=== PATIENT | male | born 1995 | race Caucasian/White ===

== ENCOUNTER 2023-09-09 17:36 | Emergency (ER) | payer OTHER, SELFPAY ==
[2023-09-09 17:58] VITALS: BP 141/108; PULSE 94; RESP 18; TEMP 36.9; O2SAT 96
--- NOTE | 2023-09-09 19:41 | ED.GENADUL_ITS ---
Discharge Plan Disposition Patient Disposition: Home Discharge Details Clinical Impression: Paraspinal muscle spasm, Acute left-sided back pain Primary Care Provider: Ruchi Guerrero ED Provider: Donny Liu Home Meds and New Rx's Prescriptions: New lidocaine [Lidoderm] 5 % adhesive patch,medicated 1 patch topical DAILY Qty: 15 0RF Rx Instructions: leave on most painful area for up to 12 hrs diazepam 5 mg tablet 5 mg PO QHS PRNQty: 5 0RF Discharge Instructions Instructions: Low Back Strain (ED), Muscle Spasm (ED) Additional Instructions: You are seen in the emergency department for your back pain. Please do not drive or drink alcohol tonight as a result of the medications you have received. As we discussed please follow-up with your primary care provider later this week as you may benefit from a physical therapy referral. Please return to the emergency department as we discussed if you lose control of your bowels or bladder. Please also return if you develop any numbness or tingling between your legs or any fevers. For your pain please take medications as follows: 1. Take acetaminophen (Tylenol), 1,000 mg (two 500 mg tabs) every 6 hours 2. Take ibuprofen (Advil), 400 mg every 6 hours. You are also receiving several pills for muscle spasm that you should take this evening as directed. Please take this prescription and use as directed. Stand Alone Forms: Work Release Discharge Data Discharge Date/Time-TO BE ENTERED AT DEPARTURE: 09/09/23 20:13 HPI General Date/Time Provider Initiated Documentation: 09/09/23 19:11 . HPI Narrative: MDM This is a previously healthy normothermic and not tachycardic 27-year-old male with sudden onset low back pain with paraspinal muscle spasm concerning for ligamentous injury versus disc herniation. No significant trauma to suggest benefit from CT scan. No pain out of proportion to suggest necrotizing soft tissue infection. No red flags for back pain. Specifically no fevers no history of malignancy. No history of IV drug use so doubt spinal epidural abscess. Not anticoagulated to suggest increased risk for spinal epidural hematoma. Furthermore no recent spinal instrumentation. No loss of bowel or bladder control to suggest cauda equina. Similarly no saddle anesthesia. No rash to back to suggest zoster. Soft nontender abdomen so I am not concerned for intra-abdominal process. Given onset of pain after moving a box at work my suspicion is highest for ligamentous injury rather than nephrolithiasis. Not hypotensive neurovascular patient to suggest increased risk for AAA. Bilateral lower extremities warm well-perfused I am not concerned for critical limb ischemia. As result patient does not require an emergent CT angiogram. Patient and I discussed return indications including any loss of bowel or bladder control any saddle anesthesia or any weakness. 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 For this evening I have given him a short course of cyclobenzaprine. I sent a prescription to the pharmacy for Lidoderm patches and diazepam. I reviewed the patient's PDMP record and he had no records. I have asked health community service patrol officer Carolynn to have the patient seen within the next week by his primary care provider. I counseled the patient that he certainly may benefit from an MRI if his symptoms do not improve with conservative treatment. I explained to him that an MRI would not be useful in the short-term given the likely local inflammation from his recent injury. 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 Patient was reportedly his crouching down in a low truck. He was sliding a box. He felt a pop in his back. He now has pain in his left lower back that radiates down around to his left thigh. No history of similar injuries in the past. No history of malignancy. No significant falls although the patient did lower himself to the ground. No fevers. No loss of bowel or bladder control. No saddle anesthesia. Patient occasionally drinks alcohol but denies routine tobacco and illicits. He took Aleve at 3 PM this afternoon. Exam General: Mildly uncomfortable-appearing in no acute distress speaking in complete sentences. Head: Normocephalic, atraumatic. Eye: Extraocular eye movements intact. No conjunctival injection. No scleral icterus. Ear, nose, mouth, throat: Grossly normal inspection. Normal voice, handling secretions normally. Neck: Trachea midline. Cardiovascular: Well-perfused distal extremities. Regular rate and rhythm Respiratory: Nonlabored respiration. Clear lungs bilaterally Gastrointestinal: Nondistended abdomen. Soft nontender Musculoskeletal:no signs of trauma to back. No midline cervical thoracic nor lumbar spinal tenderness. Left paraspinal muscle spasm. 5 out of 5 bilateral lower extremity strength in dorsi and plantarflexion. 2+ patellar reflexes bilaterally. Bilateral lower extremities warm well-perfused with 2+ DP and PT pulses bilaterally. Skin: Normal for age and race, grossly normal temperature and turgor. No acute rash. Neurologic: Alert and appropriate, no apparent acute deficits. Psychiatric: Mood and manner are appropriate. Grooming and personal hygiene are appropriate. Related Data Home Medications Medication Instructions Recorded Confirmed diazepam 5 mg tablet 5 mg PO QHS PRN #5 tabs 09/09/23 lidocaine 5 % topical patch 1 patch topical DAILY #15 ea 09/09/23 (Lidoderm) Previous Rx's Medication Instructions Recorded diazepam 5 mg tablet 5 mg PO QHS PRN #5 tabs 09/09/23 lidocaine 5 % topical patch 1 patch topical DAILY #15 ea 09/09/23 (Lidoderm) Allergies Allergy/AdvReac Type Severity Reaction Status Date / Time cefprozil [From Cefzil] Allergy body rash Unverified 09/09/23 19:49 General Stated Complaint: Nk/Back Pain DARI: 3 PFSH All Active Problems (Updated 09/09/23 @ 23:21 by Donny Liu MD) Acute left-sided back pain (Acute) Paraspinal muscle spasm (Acute) Medical History (Updated 09/09/23 @ 23:21 by Donny Liu MD) Pilonidal cyst without abscess Adopted Depression Insomnia Surgical History [place] teeth extraction Excision, Pilonidal Cyst Family History Mother No problems noted. Father No problems noted. Social History Smoking/Tobacco Use Status: Never Smoking risk assessment performed?: Yes Drug use: Never Course Vital Signs Vital signs: Vital Signs Temperature 36.9 C 09/09/23 17:58 Pulse 94 H 09/09/23 17:58 Respiratory Rate 18 09/09/23 17:58 Blood Pressure 141/108 H 09/09/23 17:58 Pulse Oximetry 96 09/09/23 17:58 Temperature 36.9 C 09/09/23 17:58 Temperature Source Temporal Artery Scan 09/09/23 17:58 Pulse 94 H 09/09/23 17:58 Respiratory Rate 18 09/09/23 17:58 Blood Pressure 141/108 H 09/09/23 17:58 Blood Pressure Position Sitting 09/09/23 17:58 Pulse Oximetry 96 09/09/23 17:58 Oxygen Delivery Method Room Air 09/09/23 17:58 Oxygen Flow Rate 0 09/09/23 17:58
[2023-09-09 19:51] VITALS: BP 133/89; PULSE 96; RESP 16; O2SAT 96
--- NOTE | 2023-09-09 19:57 | NUR.NOTE ---
Pt placed on care management referral list to see primary for back pain per ED Dr Liu to be seen within 1 weekNursing Note:
[2023-09-09] MEDS: Cyclobenzaprine 10 MG TAB, 3 TABS/BTL PO (20:10)
[2023-09-09] MEDS: Acetaminophen 500 MG TAB 1000 MG PO (20:10)
[2023-09-09] MEDS: Ibuprofen 600 MG TAB PO (20:10)
[2023-09-09] MEDS: Lidocaine 5% Patch 1 PATCH TP (20:10)
[2023-09-09] MEDS: diazePAM 5 MG TAB PO (20:10)
== END 2023-09-09 20:13 | disposition home or self-care (01) ==
PROVIDERS: Emergency Provider Emergency Medicine; PCP Nurse Practitioner
DX: M54.50 Low back pain, unspecified (principal); M62.830 Muscle spasm of back
CPT/HCPCS: 99283

== ENCOUNTER → 2023-11-11 04:05 | Outpatient (CLI) | payer OTHER, SELFPAY ==
--- NOTE | 2023-11-11 12:36 | DI.RAD_ITS ---
Exam(s) XR LUMBAR SPINE COMPLETE EXAM: XR LUMBAR SPINE COMPLETE CLINICAL HISTORY: left sciatica,LT LUMBAR RADICULOPATHY,M54.16. TECHNIQUE: 2D digital imaging was performed of the lumbar spine. Five images were obtained. AP, la teral, right oblique, left oblique and L5-S1 spot views were obtained. COMPARISON: No exams were available for comparison FINDINGS: BONES: No fracture or destructive lesion. Vertebral bodies are unremarkable. No facet hypertrophy jesu ntified. DISKS: Intervertebral disc spaces are maintained. ALIGNMENT: Lumbar spinal alignment is within normal limits. No spondylolysis or spondylolisthesis. SOFT TISSUE: Normal. IMPRESSION: Unremarkable radiographs of the lumbar spine. DATA REPOSITORY: RADIATION DOSE DELIVERED:
== END ==
PROVIDERS: PCP Nurse Practitioner; Visit Provider Emergency Medicine
DX: M54.16 Radiculopathy, lumbar region (principal)
CPT/HCPCS: 72110

== ENCOUNTER → 2023-12-23 04:07 | Outpatient (CLI) | payer OTHER, SELFPAY ==
--- NOTE | 2023-12-23 07:30 | DI.MRI_ITS ---
Exam(s) MR LUMBAR SPINE WO EXAM: MR LUMBAR SPINE WO CLINICAL HISTORY: persistent left sciatica from workplace injury.m54.32. TECHNIQUE: Multiplanar multisequence MRI of the Lumbar spine was performed. COMPARISON: CR XR LUMBAR SPINE COMPLETE from 11/11/2023 FINDINGS: Bones: The last intervertebral disc space is designated the L5/S1 level for the numbering purpose of this examination. The vertebral body heights are well maintained. Alignment is satisfactory. The si gnal characteristics are unremarkable. Cord: The conus tip ends at the T12 level. It is of normal size and signal intensity. T12-L1: No disc herniations or bulges are present. No central spinal canal or neural foraminal stenos is. L1-2: No disc herniations or bulges are present. No central spinal canal or neural foraminal stenosis . L2-3: No disc herniations or bulges are present. No central spinal canal or neural foraminal stenosis . L3-4: No disc herniations or bulges are present. No central spinal canal or neural foraminal stenosis . L4-5: There is a small central disc herniation. No central spinal canal or neural foraminal stenosis . L5-S1: There is a small left paracentral disc herniation. No central spinal canal or neural foramina l stenosis. Soft tissues: The visualized SI joints and sacrum are well maintained. The paraspinal soft tissues ar e unremarkable. IMPRESSION: 1. No evidence of significant spinal stenosis or neuroforaminal narrowing. 2. Small central disc herniation at L4-5 without nerve root compression or neural foraminal stenosis. 3. Small left paracentral disc herniation without nerve root compression or neural foraminal stenosis . 4. No evidence of acute fracture or subluxation. DATA REPOSITORY:
== END ==
PROVIDERS: PCP Nurse Practitioner; Visit Provider Emergency Medicine
DX: M54.32 Sciatica, left side (principal)
CPT/HCPCS: 72148

== ENCOUNTER 2025-04-20 09:36 | Observation (INO) | payer MEDICAID, SELFPAY ==
[2025-04-20 09:43] VITALS: BP 136/88; PULSE 118; RESP 16; TEMP 37.4; O2SAT 97
[2025-04-20 09:47] VITALS: BP 136/88; PULSE 118; RESP 16; TEMP 37.4
[2025-04-20] MEDS: Acetaminophen 500 MG TAB 1000 MG PO (10:16)
[2025-04-20] MEDS: Ketorolac 15 MG/ML VIAL IVP (10:17)
[2025-04-20] MEDS: Normal Saline 1,000 ML 1000 ML IV (10:18)
[2025-04-20 10:28] LABS: Abs Immature Grans 0.05 10^3/uL (0.0-0.06); HCT 44.9 % (40.0-50.0); HGB 15.8 g/dL (13.5-17.5); Immature Grans % 0.4 %; MCH 27.1 pg (27.0-33.0); MCHC 35.2 % (32.0-36.0); MCV 77 fL (80-95); MPV 11.0 fL (8.0-11.0); Platelet Count 133 10^3/uL (130-400); RBC 5.84 10^6/uL (4.36-5.78); RDW 13.6 % (11.8-14.1); RDW-SD 37.5 fL; WBC 12.23 10^3/uL (4.4-10.8)
[2025-04-20 10:43] LABS: Albumin 3.6 g/dL (3.4-5.0); Alkaline Phosphatase 76 U/L (46-116); Anion Gap 15.9 mmol/L (3-11); BUN 12 mg/dL (7-18); Bilirubin, Total 1.8 mg/dL (0.2-1.0); CO2 22.1 mmol/L (21.0-32.0); Calcium 9.0 mg/dL (8.5-10.1); Chloride 89 mmol/L (98-107); Estimated GFR 103.84 (mL/min/1.73m2); Glucose 413 mg/dL (74-106); Potassium 4.2 mmol/L (3.5-5.1); Sodium 127 mmol/L (136-145)
[2025-04-20] MEDS: Normal Saline - Diluent 50 ML VIAL IJ (10:44)
[2025-04-20] MEDS: Omnipaque 350 MG/ML 100 ML BTL IJ (10:45)
--- NOTE | 2025-04-20 10:47 | DI.CT_ITS ---
Exam(s) CT ABDOMEN PELVIS W EXAM: CT ABDOMEN PELVIS W CLINICAL HISTORY: ?appy. TECHNIQUE: Imaging Protocol: Axial computed tomography images with coronal and sagittal reformatted images were created and reviewed CONTRAST MATERIAL: Intravenous: Omnipaque-350 100cc Oral: None COMPARISON: No exams were available for comparison FINDINGS: VISUALIZED LUNG BASES: No nodules nor pleural effusions evident. ABDOMEN: LIVER: Liver is diffusely hypodense implying steatosis and liver size is slightly prominent. There are no discrete focal hepatic lesions. There are no dilated intrahepatic ducts. Intrahepatic veins are patent. GALLBLADDER/BILIARY: No obvious acute gallbladder pathology. CBD is not dilated. PANCREAS: No evidence of pancreatic mass nor dilatation of the pancreatic duct. SPLEEN: Splenomegaly. Craniocaudal measurement of the spleen is 15.8 cm. There are no intrasplenic lesions. Splenic and portal veins are patent. ADRENALS: There are no significant adrenal masses. KIDNEYS:No cysts evident. No solid renal masses. No calculi nor hydronephrosis.. ABDOMINAL AORTA: Abdominal aorta is not enlarged. LYMPH NODES:There is no retroperitoneal nor paraaortic adenopathy. ABDOMINAL WALL: No evidence of significant anterior abdominal wall nor inguinal hernia. GI: There is significant fluid in the right-side of the abdomen seen around the distal half the duodenum and subjacent to the uncinate process of the pancreas and along the right paracolic gutter extending down into the pelvis and most dependent aspect of the pelvis. This fluid is of uniform density. Is also seen around the appendix. The appendix itself exhibits slightly increased diameter of 7-8 mm and is uniformly dense and does not contain intraluminal gas. No focal appendicoliths evident. The duodenal C-loop is moderately dilated. There is fluid around the 3rd and 4th parts of the duodenum. PELVIS: GI: There is no significant sigmoid diverticular disease. LYMPH NODES: There is no intrapelvic nor inguinal adenopathy. REPRODUCTIVE: Prostate size normal. Seminal vesicles unremarkable. URINARY BLADDER: No calculi nor obvious masses evident OSSEOUS: No fractures and no significant osseous lesions. IMPRESSION: 1. There is abundant fluid in the right-side of the abdomen extending from around the distal half of the a duodenum and adjacent uncinate process of the pancreas and extending in continuous fashion for this region down subjacent to the inferior aspect of the right hepatic lobe and down the right pericolic gutter all the way into the most dependent aspect of the pelvis. The appendix is bathed in this fluid and is slightly prominent in diameter but this amount of free fluid is not typical of acute appendicitis. 2. Appearance of the duodenum reflects possible duodenitis. Cannot exclude the possibly that the epicenter of disease here is in the distal half of the duodenal C-loop including of the ligament of Treitz. There is some fluid subjacent to the uncinate process of the pancreas but the pancreas itself ex hibits normal density. Nevertheless would recommend blood work for pancreatitis. 3. There is hepatomegaly and hepatic steatosis and splenomegaly. There are no esophageal varices. 4. Surgical consultation recommended. Report called by myself to ER provider 04/20/2025 at 11:10 a.m. RADIATION DOSE DELIVERED: 584.34mGy.cm Total DLP DATA REPOSITORY: All CT scans at this facility are submitted to the National Radiology Data Registry (NRDR) Dose Index Registry (DIR) with the [employer] (A[employer]). RADIATION OPTIMIZATION: All CT scans at this facility use at least one of these dose optimization techniques: automated exposure control; mA and/or kV adjustment per patient size (includes targeted exams where dose is matched to clinical indication); or iterative reconstruction.
--- NOTE | 2025-04-20 10:52 | W.ED.GENAD ---
Discharge Plan Disposition Patient Disposition: Admit to [facility] Condition: Stable Discharge Details Clinical Impression: Pancreatitis Admit Date/Time: 04/20/25 12:11 Admit Provider: Jose Garcia Attending Provider: Jose Garcia Primary Care Provider: Ruchi Guerrero ED Provider: Blayne Gee [facility] General Date/Time Provider Initiated Documentation: 04/20/25 09:39. HPI Narrative: 29 year-old male presents to ED today by POV/ambulating with his father with a chief complaint of umbilical abdominal pain, migrating to RLQ over the past 2 days with poor appetite. Quality described as stabbing abdominal pain, no radiation to heartburn, indigestion, fever, chest pain, shortness of breath, nausea/vomiting, black/bloody stool, dysuria. Severity is described as severe. Palliating factors include nothing specific attempted. Provoking factors include nothing specific. Events leading up to the incident/Associated Symptoms: Last BM 2 days ago. Patient not anticoagulated. Related Data Home Medications ?Medication ?Instructions ?Recorded ?Confirmed Unknown [No Known Home Meds] 10/15/24 04/20/25 Allergies Allergy/AdvReac Type Severity Reaction Status Date / Time cefprozil (From Cefzil) Allergy body rash Verified 10/06/24 08:41 General Stated Complaint: Abd Prob DARI: 3 Review of Systems All systems reviewed & are unremarkable except as noted in HPI and below Exam Narrative Exam Narrative: GENERAL APPEARANCE: Well-nourished, toxic, awake and alert, atraumatic, mild acute distress. SKIN: Warm, pink, dry, intact, without rashes/lesions/ulcerations. HEAD: Normocephalic, atraumatic, normal hair distribution for gender/age. EYES: Normal conjunctiva, no exudates on lids/lashes. ENT: Nares patent, no circumoral cyanosis, no facial swelling NECK: Supple, trachea midline, painless cervical ROM. LUNGS/CHEST: Lungs CTA bilaterally- no rhonchi/rales/wheezes diffusely, non-labored respirations, normal A/P diameter, symmetrical expansion, no chest wall deformity HEART (CV/PV): Regular rate and rhythm without murmur, no peripheral edema, no JVD. ABDOMEN: Soft, non-distended, no guarding, RLQ tenderness at McBurney's point with rebound tenderness, no epigastric tenderness, no Rovsing's. MSK: Normal ROM, no swelling/deformity to bilateral UEs or LEs, moving all extremities without weakness, no cyanosis, spine midline without tenderness, normal curvature. NEURO: Mental Status AAOx4 - alert to person, place, time, events No facial droop, no forehead involvement. Motor: No focal weakness - strength 5/5 in bilateral UEs and LEs, proximal and distal, symmetric. Sensory: sensation intact to light touch globally. Gait normal: patient ambulated without ataxia into ED room. PSYCH: euthymic, cooperative, pleasant, appropriate speech Course Vital Signs Vital signs: Vital Signs Temperature 37.4 C 04/20/25 09:43 Pulse 118 H 04/20/25 09:43 Respiratory Rate 16 04/20/25 09:43 Blood Pressure 136/88 04/20/25 09:43 Pulse Oximetry 97 04/20/25 09:43 Temperature 37.4 C 04/20/25 09:47 Temperature Source Oral 04/20/25 09:47 Pulse 118 H 04/20/25 09:47 Respiratory Rate 16 04/20/25 09:47 Blood Pressure 136/88 04/20/25 09:47 Blood Pressure Position Supine 04/20/25 09:47 Pulse Oximetry 97 04/20/25 09:43 Oxygen Delivery Method Room Air 04/20/25 09:43 Oxygen Flow Rate 0 04/20/25 09:43 Pain Level 6 04/20/25 09:47 Lab/Test Results Lab/Test Results: 04/20/25 10:10 Blood Blood Culture - Pending 04/20/25 10:10 Blood Blood Culture - Pending Laboratory Tests Range/Units 04/20/25 10:21 WBC (4.4-10.8) 10^3/uL 12.23 H RBC (4.36-5.78) 10^6/uL 5.84 H Hgb (13.5-17.5) g/dL 15.8 Hct (40.0-50.0) % 44.9 MCV (80-95) fL 77 L MCH (27.0-33.0) pg 27.1 MCHC (32.0-36.0) % 35.2 RDW (11.8-14.1) % 13.6 Plt Count (130-400) 10^3/uL 133 MPV (8.0-11.0) fL 11.0 Immature Gran % % 0.4 Neutrophils % % 83.9 Lymphocytes % % 8.7 Monocytes % % 6.5 Eosinophils % % 0.1 Basophils % % 0.4 Nucleated RBC % (0.0-0.3) % 0.0 Absolute Neutrophils (1.2-6.7) 10^3/uL 10.26 H Absolute Lymphocytes (1.2-3.4) 10^3/uL 1.06 L Absolute Monocytes (0.1-0.8) 10^3/uL 0.79 Absolute Eosinophils (0.0-0.7) 10^3/uL 0.01 Absolute Basophils (0.0-0.2) 10^3/uL 0.05 VBG Lactate (<or=2.0) mmol/L 2.4 H* Medical Decision Making This dictation utilizes [id number] dictation software and may contain unedited grammatical errors. 29 year-old male presents to ED today by POV/ambulating with his father with a chief complaint of umbilical abdominal pain, migrating to RLQ over the past 2 days with poor appetite. Quality described as stabbing abdominal pain, no radiation to heartburn, indigestion, fever, chest pain, shortness of breath, nausea/vomiting, black/bloody stool, dysuria. Severity is described as severe. Palliating factors include nothing specific attempted. Provoking factors include nothing specific. Events leading up to the incident/Associated Symptoms: Last BM 2 days ago. Patients' medical history: Negative, otherwise healthy. Family and social history: Noncontributory. Pertinent exam findings / vital signs include right lower quadrant tenderness at McBurney's point with rebound tenderness, no Rovsing's, negative Cloud sign, no epigastric tenderness, lungs CTA, afebrile, tachycardic. Differential / pathologies of concern include appendicitis, renal colic, SBO, less likely gastritis. Diagnostic studies of: - CBC, CMP, lactate, lipase, CRP, blood cultures, CT ABD/pelvis with contrast. - CBC shows a mild leukocytosis at 12.2 without left shift - CMP shows glucose of 413, anion gap 15.9, no TEREZA, LFTs within normal limits - Lipase is elevated at 152 - CRP is greater than 25 - Blood cultures pending - CT shows gross amounts of free fluid in the retroperitoneum likely coming from perforated duodenal ulcer, the appendix is thickened but source of fluid appears to be around the head of the pancreas Interventions of: - IVF 1 L NS, IV Tylenol, Toradol, IV Cipro and Flagyl. ED Course/Assessment/Plan: 29-year-old male presents with classic exam findings for appendicitis but CT does show that he has some free fluid in the abdomen and retroperitoneum mostly likely source around the pancreatic head possibly a duodenal ulcer, Dr. Garcia of general surgery admitted the patient for hobs overnight with antibiotics and potential procedure tomorrow, given IV antibiotics here in the emergency department and admitted upstairs at 1211. Confirmed diagnosis of pancreatitis, and suspected perforated duodenal ulcer with possible appendicitis. Findings not consistent with fever, ruptured appendix, appendicolith, renal colic, obstructive uropathy. Disposition of Pancreatitis. Patient verbalized understanding of the plan and return to ED criteria and engaged in shared decision making. Medical Records Medical records reviewed: Yes I reviewed the patient's medical records. Imaging Data Radiologic Study: Attestation: I personally reviewed and interpreted this imaging study as follows: Imaging: CT Scan Radiologist's impression: EXAM: CT ABDOMEN PELVIS W CLINICAL HISTORY: ?appy. TECHNIQUE: Imaging Protocol: Axial computed tomography images with coronal and sagittal reformatted images were created and reviewed CONTRAST MATERIAL: Intravenous: Omnipaque-350 100cc Oral: None COMPARISON: No exams were available for comparison FINDINGS: VISUALIZED LUNG BASES: No nodules nor pleural effusions evident. ABDOMEN: LIVER: Liver is diffusely hypodense implying steatosis and liver size is slightly prominent. There are no discrete focal hepatic lesions. There are no dilated intrahepatic ducts. Intrahepatic veins are patent. GALLBLADDER/BILIARY: No obvious acute gallbladder pathology. CBD is not dilated. PANCREAS: No evidence of pancreatic mass nor dilatation of the pancreatic duct. SPLEEN: Splenomegaly. Craniocaudal measurement of the spleen is 15.8 cm. There are no intrasplenic lesions. Splenic and portal veins are patent. ADRENALS: There are no significant adrenal masses. KIDNEYS:No cysts evident. No solid renal masses. No calculi nor hydronephrosis.. ABDOMINAL AORTA: Abdominal aorta is not enlarged. LYMPH NODES:There is no retroperitoneal nor paraaortic adenopathy. ABDOMINAL WALL: No evidence of significant anterior abdominal wall nor inguinal hernia. GI: There is significant fluid in the right-side of the abdomen seen around the distal half the duodenum and subjacent to the uncinate process of the pancreas and along the right paracolic gutter extending down into the pelvis and most dependent aspect of the pelvis. This fluid is of uniform density. Is also seen around the appendix. The appendix itself exhibits slightly increased diameter of 7-8 mm and is uniformly dense and does not contain intraluminal gas. No focal appendicoliths evident. The duodenal C-loop is moderately dilated. There is fluid around the 3rd and 4th parts of the duodenum. PELVIS: GI: There is no significant sigmoid diverticular disease. LYMPH NODES: There is no intrapelvic nor inguinal adenopathy. REPRODUCTIVE: Prostate size normal. Seminal vesicles unremarkable. URINARY BLADDER: No calculi nor obvious masses evident OSSEOUS: No fractures and no significant osseous lesions. IMPRESSION: 1. There is abundant fluid in the right-side of the abdomen extending from around the distal half of the a duodenum and adjacent uncinate process of the pancreas and extending in continuous fashion for this region down subjacent to the inferior aspect of the right hepatic lobe and down the right pericolic gutter all the way into the most dependent aspect of the pelvis. The appendix is bathed in this fluid and is slightly prominent in diameter but this amount of free fluid is not typical of acute appendicitis. 2. Appearance of the duodenum reflects possible duodenitis. Cannot exclude the possibly that the epicenter of disease here is in the distal half of the duodenal C-loop including of the ligament of Treitz. There is some fluid subjacent to the uncinate process of the pancreas but the pancreas itself exhibits normal density. Nevertheless would recommend blood work for pancreatitis. 3. There is hepatomegaly and hepatic steatosis and splenomegaly. There are no esophageal varices. 4. Surgical consultation recommended. Report called by myself to ER provider 04/20/2025 at 11:10 a.m. Lab Data Lab results reviewed: Yes I reviewed the patient's lab results. Labs: 04/20/25 11:45 Blood Blood Culture - Pending 04/20/25 11:10 Blood Blood Culture - Pending Laboratory Tests Range/Units 04/20/25 10:21 WBC (4.4-10.8) 10^3/uL 12.23 H RBC (4.36-5.78) 10^6/uL 5.84 H Hgb (13.5-17.5) g/dL 15.8 Hct (40.0-50.0) % 44.9 MCV (80-95) fL 77 L MCH (27.0-33.0) pg 27.1 MCHC (32.0-36.0) % 35.2 RDW (11.8-14.1) % 13.6 Plt Count (130-400) 10^3/uL 133 MPV (8.0-11.0) fL 11.0 Immature Gran % % 0.4 Neutrophils % % 83.9 Lymphocytes % % 8.7 Monocytes % % 6.5 Eosinophils % % 0.1 Basophils % % 0.4 Nucleated RBC % (0.0-0.3) % 0.0 Absolute Neutrophils (1.2-6.7) 10^3/uL 10.26 H Absolute Lymphocytes (1.2-3.4) 10^3/uL 1.06 L Absolute Monocytes (0.1-0.8) 10^3/uL 0.79 Absolute Eosinophils (0.0-0.7) 10^3/uL 0.01 Absolute Basophils (0.0-0.2) 10^3/uL 0.05 VBG Lactate (<or=2.0) mmol/L 2.4 H* Sodium (136-145) mmol/L 127 L Potassium (3.5-5.1) mmol/L 4.2 Chloride (98-107) mmol/L 89 L Carbon Dioxide (21.0-32.0) mmol/L 22.1 Anion Gap (3-11) mmol/L 15.9 H BUN (7-18) mg/dL 12 Creatinine (0.70-1.30) mg/dL 1.0 Est GFR (CKD-EPI 2020) (mL/min/1.73m2) 103.84 Glucose (74-106) mg/dL 413 H Calcium (8.5-10.1) mg/dL 9.0 Total Bilirubin (0.2-1.0) mg/dL 1.8 H AST (15-37) U/L 9 L ALT (16-63) U/L 10 L Alkaline Phosphatase (46-116) U/L 76 C-Reactive Protein (<or=0.5) mg/dL > 25.00 H Total Protein (6.4-8.2) g/dL 8.4 H Albumin (3.4-5.0) g/dL 3.6 Lipase (<78) U/L 152 H PFSH All Active Problems (Updated 04/20/25 @ 15:31 by CHANDRIKA Bahena) Pancreatitis (Chronic) Numbness and tingling of left lower extremity (Acute) Bulge of lumbar disc without myelopathy (Acute ~06/2024) 07/06/24 [facility] visit, no immediate intervention Left lumbar radiculopathy (Acute) 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
[2025-04-20 11:05] LABS: ALT 10 U/L (16-63); AST 9 U/L (15-37); C-Reactive Protein > 25.00 mg/dL (<or=0.5)
[2025-04-20 11:07] LABS: Total Protein 8.4 g/dL (6.4-8.2)
[2025-04-20 11:26] LABS: Lipase 152 U/L (<78)
[2025-04-20 12:16] VITALS: BP 119/75; PULSE 102; RESP 16; O2SAT 97
[2025-04-20 12:33] LABS: Bilirubin, Direct 0.2 mg/dL (0.0-0.2)
--- NOTE | 2025-04-20 13:07 | W.PC.ACHO ---
Registration Status: REG ER Primary Language: Preferred Language: Turkmen ED Information & Data Chief Complaint Abd Prob 04/20/25 10:53 Triage Note Two days of abdominal pain. 04/20/25 09:43 Started in the center then traveled to right lower abdomen. No BM in two days. 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) (Last Reviewed 11/17/24 @ 11:34 by Kerri Pretty NP) Excision, Pilonidal Cyst [place] teeth extraction Most Recent Vital Signs Temperature 37.4 C 04/20/25 09:47 Temperature Source Oral 04/20/25 09:47 Pulse 102 H 04/20/25 12:16 Respiratory Rate 16 04/20/25 12:16 Blood Pressure 119/75 04/20/25 12:16 Blood Pressure Mean 89 04/20/25 12:16 Blood Pressure Position Supine 04/20/25 09:47 Pulse Oximetry 97 04/20/25 12:16 Oxygen Delivery Method Room Air 04/20/25 09:43 Oxygen Flow Rate 0 04/20/25 09:43 Pain Level 6 04/20/25 09:47 Allergies cefprozil (From Cefzil) Allergy (Verified 10/06/24 08:41) body rash Precautions Isolation Standard precaution 04/20/25 09:47 Active Medications Generic Name Dose Route Start Last Admin Trade Name Freq PRN Reason Stop Dose Admin Iohexol 100 ml 04/20/25 10:45 04/20/25 10:45 Omnipaque 350 Mg/Ml 100 Ml Btl IJ 05/20/25 23:59 100 ml DIRECTED CHRISTINA Administration Sodium Chloride 50 ml 04/20/25 10:45 04/20/25 10:44 Normal Saline - Diluent 50 Ml Vial IJ 50 ml .FOR DI USE CHRISTINA Administration IV IV Catheter Type [Left Forearm Peripheral IV ] IV Catheter Gauge [Left 18 Forearm] Diagnostics 04/20/25 Range/Units 10:21 WBC 12.23 H (4.4-10.8) 10^3/uL RBC 5.84 H (4.36-5.78) 10^6/uL Hgb 15.8 (13.5-17.5) g/dL Hct 44.9 (40.0-50.0) % MCV 77 L (80-95) fL MCH 27.1 (27.0-33.0) pg MCHC 35.2 (32.0-36.0) % RDW 13.6 (11.8-14.1) % Plt Count 133 (130-400) 10^3/uL MPV 11.0 (8.0-11.0) fL Immature Gran % 0.4 % Neutrophils % 83.9 % Lymphocytes % 8.7 % Monocytes % 6.5 % Eosinophils % 0.1 % Basophils % 0.4 % Nucleated RBC % 0.0 (0.0-0.3) % Absolute Neutrophils 10.26 H (1.2-6.7) 10^3/uL Absolute Lymphocytes 1.06 L (1.2-3.4) 10^3/uL Absolute Monocytes 0.79 (0.1-0.8) 10^3/uL Absolute Eosinophils 0.01 (0.0-0.7) 10^3/uL Absolute Basophils 0.05 (0.0-0.2) 10^3/uL VBG Lactate 2.4 H* (<or=2.0) mmol/L Sodium 127 L (136-145) mmol/L Potassium 4.2 (3.5-5.1) mmol/L Chloride 89 L (98-107) mmol/L Carbon Dioxide 22.1 (21.0-32.0) mmol/L Anion Gap 15.9 H (3-11) mmol/L BUN 12 (7-18) mg/dL Creatinine 1.0 (0.70-1.30) mg/dL Est GFR (CKD-EPI 2020) 103.84 (mL/min/1.73m2) Glucose 413 H (74-106) mg/dL Calcium 9.0 (8.5-10.1) mg/dL Total Bilirubin 1.8 H (0.2-1.0) mg/dL Conjugated Bilirubin 0.2 (0.0-0.2) mg/dL AST 9 L (15-37) U/L ALT 10 L (16-63) U/L Alkaline Phosphatase 76 (46-116) U/L C-Reactive Protein > 25.00 H (<or=0.5) mg/dL Total Protein 8.4 H (6.4-8.2) g/dL Albumin 3.6 (3.4-5.0) g/dL Lipase 152 H (<78) U/L 04/20/25 11:45 Blood Culture - Pending Blood 04/20/25 11:10 Blood Culture - Pending Blood Intake and Output - 24 Hour Total 04/20/25 09:36 thru 04/20/25 09:43 Weight 108.862 kg Falls Risk Assessment History of Falls No History 04/20/25 09:47 Contributing Factors No Factors 04/20/25 09:47 Ambulatory Aids Independent 04/20/25 09:47 Tubes/Lines None 04/20/25 09:47 Gait Evaluation No gait disturbance 04/20/25 09:47 Cognition No cognitive impairment 04/20/25 09:47 Fall Total Score 0 04/20/25 09:47 Level of Risk Standard/Low Risk 04/20/25 09:47 v v v v v v v v v Sending and/or Receiving Nurses: Please use comment section below to note any information pertinent to the patient hand-off not included above. Information / Comments: Paged at [phone], called ED [phone]. Surgical consult already completed, pending new IV placed in ED. Report received from: Marlin ED nurse
[2025-04-20 13:30] VITALS: BP 125/87; PULSE 130; RESP 17; TEMP 36.9; O2SAT 96
[2025-04-20] MEDS: ACETAMINOPHEN 1,000 MG/100 ML BAG 400 MG IVPB ×2 (14:23→20:36)
[2025-04-20] MEDS: Normal Saline Flush 10 ML SYR IVP ×2 (14:24→20:36)
[2025-04-20] MEDS: Pantoprazole 40 MG VIAL IVP (14:24)
[2025-04-20] MEDS: Lactated Ringers 1,000 ML 75 ML IV (14:24)
[2025-04-20] MEDS: metroNIDAZOLE 500 MG/100 ML BAG 100 MG IVPB ×2 (14:52→22:41)
--- NOTE | 2025-04-20 14:55 | W.PM.HP.N ---
Date of service: 04/20/25 Time of Service: 15:12 Assessment and Plan Assessment and plan (1) Pancreatitis: Status: Chronic Assessment and plan: I do think that Cesar probably has some appendicitis, but I think the origin of this is really inflammation arising from the pancreas and duodenum. An overwhelming amount of the inflammation and fluid is confined to the retroperitoneum, extending down along the paracolic gutter. The majority of the appendix itself actually appears quite normal, as does the surrounding mesoappendix, unlike traditional appendicitis with appendiceal dilation and obstruction from an appendicolith. In that regard, I do not think there is any urgency to foster to the operating room here. More importantly I think controlling his pancreatitis, and correcting his electrolyte abnormalities and addressing what appears to be new diabetes is probably the most important step. I did start some broad-spectrum antibiotics, we will continue with some basic intravenous resuscitation. I would expect that to resolve his hyponatremia in short order. Obviously, how he responds to treatment will be the most important part here. I will also put him on a intravenous PPI in case this is arising from peptic ulcer disease adjacent to the pancreatic head. History of Present Illness History of Present Illness Chief Complaint: Abdominal pain Narrative: Cesar is 29 years old. He comes to the emergency department with a chief complaint of right lower quadrant pain. He recalls a clear onset of it about 2 days ago. He described it as sharp, mostly around the umbilicus. Over the next day and a half, it radiated towards the right side. He had a little bit of nausea without any vomiting. He denies any change in his stool. He denies any subjective fevers. He denies any history of gastroesophageal reflux disease or dyspepsia. Past medical history is most significant for a traumatic lower back injury. He is also had excision of a pilonidal cyst. He is allergic to Cefzil. In the emergency department, he was found to have a leukocytosis around 12-1/2 [address] He [address] a [address] scan of the abdomen and pelvis suspecting that he might have appendicitis. Significant findings include extensive fluid in the retroperitoneum most heavily focused around the duodenum and uncinate process of the pancreas. This runs down the right paracolic gutter towards the appendix. The appendix itself is slightly dilated at 7 to 8 mm, but the appearance is overall a typical of appendicitis. There is no appendicolith. Other significant lab findings include hyponatremia at 127, lactic acidosis at 3.4 and an anion gap. He also has a serum glucose of 413, without any diagnosis of diabetes. His biochemical evidence of pancreatitis with a serum lipase level of 152. Review of Systems Constitutional Constitutional: Reports fatigue, Denies fever(s) and Reports poor appetite Eyes Eyes: Reports system reviewed and no additional complaints, except as documented ENT Ears, Nose, Mouth, and Throat: Reports system reviewed and no additional complaints, except as documented Cardiovascular Cardiovascular: Denies chest pain and Denies dyspnea Respiratory Respiratory: Denies chest congestion, Denies cough and Denies dyspnea Gastrointestinal Gastrointestinal: Reports abdominal pain, Denies change in bowel habits, Denies constipation, Denies dyspepsia, Denies diarrhea, Reports nausea and Denies vomiting Genitourinary Genitourinary: Reports system reviewed and no additional complaints, except as documented Musculoskeletal Musculoskeletal: Reports system reviewed and no additional complaints, except as documented Endocrine Endocrine: Reports fatigue Hematologic/Lymphatic Hematologic/Lymphatic: Denies as per HPI and Denies easy bleeding PFSH All Active Problems (Updated 04/20/25 @ 15:27 by Jose Garcia MD) Pancreatitis (Chronic) Numbness and tingling of left lower extremity (Acute) Bulge of lumbar disc without myelopathy (Acute ~06/2024) 07/06/24 [facility] visit, no immediate intervention Left lumbar radiculopathy (Acute) 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) Pilonidal cyst without abscess Adopted Depression Insomnia Surgical History [place] teeth extraction Excision, Pilonidal Cyst Family History Other Adopted Social History Smoking/Tobacco Use Status: Never Smoking risk assessment performed?: Yes Alcohol Intake: former Drug use: Never Substance use type: does not use Housing: house current occupation: Former [employer] worker, currently on work injury Do you feel safe at home: Yes Do you feel safe in your relationship?: Yes Meds Allergies and Home Medications Allergies Allergy/AdvReac Type Severity Reaction Status Date / Time cefprozil (From Cefzil) Allergy body rash Verified 10/06/24 08:41 Home Medications ?Medication ?Instructions ?Recorded ?Confirmed ?Type Unknown [No Known Home Meds] 10/15/24 04/20/25 History Exam Const General: cooperative, healthy appearing and comfortable Nutritional Appearance: overweight Orientation: alert, awake and oriented x3 HENMT Head: normal to inspection Eyes General: appearance normal, both eyes and all related structures Neck Neck: normal visual inspection, full ROM and no lymphadenopathy Resp Effort & Inspection: normal respiratory effort Auscultation: clear to auscultation bilaterally Cardio Rate: regular rate Rhythm: regular rhythm Heart Sounds: S1 normal and S2 normal GI Inspection: non-distended Palpation: soft, guarding in the RLQ, no hernias and tender in the RLQ and periumbilically Percussion: normal to percussion Auscultation: hypoactive bowel sounds Extrem Right lower extremity: no edema Left lower extremity: no edema Results Imaging Abdomen CT scan report/results: report reviewed and image reviewed CT scan - pelvis: report reviewed and image reviewed Labs 04/20/25 10:21 04/20/25 10:21 Labs: Laboratory Results - last 24 hr 04/20/25 10:21 WBC 12.23 H RBC 5.84 H Hgb 15.8 Hct 44.9 MCV 77 L MCH 27.1 MCHC 35.2 RDW 13.6 Plt Count 133 MPV 11.0 Immature Gran % 0.4 Neutrophils % 83.9 Lymphocytes % 8.7 Monocytes % 6.5 Eosinophils % 0.1 Basophils % 0.4 Nucleated RBC % 0.0 Absolute Neutrophils 10.26 H Absolute Lymphocytes 1.06 L Absolute Monocytes 0.79 Absolute Eosinophils 0.01 Absolute Basophils 0.05 VBG Lactate 2.4 H* Sodium 127 L Potassium 4.2 Chloride 89 L Carbon Dioxide 22.1 Anion Gap 15.9 H BUN 12 Creatinine 1.0 Est GFR (CKD-EPI 2020) 103.84 Glucose 413 H Calcium 9.0 Total Bilirubin 1.8 H Conjugated Bilirubin 0.2 AST 9 L ALT 10 L Alkaline Phosphatase 76 C-Reactive Protein > 25.00 H Total Protein 8.4 H Albumin 3.6 Lipase 152 H Last Vital Signs Temp 98.4 F 04/20/25 13:30 Pulse 130 H 04/20/25 13:30 Resp 17 07/29/25 13:30 BP 125/87 04/20/25 13:30 Pulse Ox 96 04/20/25 13:30 Time Spent Time spent with Patient: >75 minutes Time was spent: preparing to see the patient(eg.review tests), ordering medications,tests, procedures, referring, communicating with other health resident care director, indepentently interpreting results, counseling the patient and care coordination
[2025-04-20] MEDS: Lactated Ringers 500 ML 1000 ML IV (15:35)
[2025-04-20] MEDS: CIPROFLOXACIN 200 MG/100 ML BAG 100 MG IVPB (16:20)
[2025-04-20] MEDS: Insulin Aspart 300 UNITS/3 ML PEN SC (17:08)
[2025-04-20 17:13] VITALS: PULSE 103
--- NOTE | 2025-04-20 17:44 | MCONE_ITS ---
Date of service: 04/20/25 Time of Service: 17:44 Assessment and Plan Assessment and plan (1) Abdominal pain: Status: Acute Assessment and plan: Abdominal pain with elevated CRP, WBC, and lipase consistent with some degree of pancreatitis. CT suggests that duodenal infection may be primary issue, possible ulcer eroding into pancreas? hepatic steatosis and splenomegaly, but labs not c/w cirrhosis/portal hypertension, no transaminitis, no fever to suggest infection like mono. Symptom pattern c/w appendicitis but imaging less c/w this. He is NPO on IV fluids, cipro and metronidazole per surgery (2) Hyperglycemia: Status: Acute Assessment and plan: He denies symptoms of diabetes, though I don't think Pancreatic inflammation may be contributing. A1c pending, add c-peptide and immune antibodies. It does not appear he is in DKA Treating with basal/bolus insulin, titrate based on response (3) Lactic acidosis: Status: Acute Assessment and plan: Secondary to acute infection, some dehydration. Repeat BMP after fluid in ED. (4) Hyponatremia: Status: Acute Assessment and plan: In setting of acute infection, hypovolemia. Follow with supportive care. (5) DVT prophylaxis: Status: Acute Assessment and plan: enoxaparin History of Present Illness Narrative: 29 yo M with history of irritable bowel, chronic lumbar disc disease who presenting with abdominal pain, evaluated by surgery and found to be hyperglycemic. He started feeling constipated 2 days ago, which is not normal for him, usually has several BMs/day. About 10 hours later, started with epigastric to periumbilical achy pain. By yesterday, the pain starting becoming more focal in RLQ. He has not had fevers or chills. No BM since this started. He has poor appetite, hasn't really eaten in past 2 days but is drinking. No recent blood in stool or change in chronic loose stools. He hasn't had cough or cold symptoms. He has some nausea but no vomiting. Never had this pain before. He doesn't use alcohol or drugs. No h/o abdominal surgeries. No abdominal trauma. No new medications or supplements. He has never had high sugars before. Denies polyuria/polydypsia or weight loss. 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) Pilonidal cyst without abscess Adopted Depression Insomnia Surgical History [place] teeth extraction Excision, Pilonidal Cyst Family History (Updated 04/20/25 @ 18:15 by Donny Guadalupe) Brother Diabetes per father, biologic siblings Other Adopted Social History Smoking/Tobacco Use Status: Never Smoking risk assessment performed?: Yes Alcohol Intake: former Drug use: Never Substance use type: does not use Housing: house current occupation: Former [employer] worker, currently on work injury Do you feel safe at home: Yes Do you feel safe in your relationship?: Yes Exam Narrative Exam Narrative: GEN: Alert and oriented x 4, pleasant and cooperative, gives linear history. No acute distress at rest. HEENT: Head atraumatic. Conjunctiva clear, no icterus. PEERL, EOMI. no rhinorrhea. MMM, OP benign. Neck is supple with no masses or lymphadenopathy, trachea midline LUNGS: CTAB with normal effort CV: RRR with no murmurs, gallops, or rubs. ABD: active bowel sounds, soft, tender in RUQ to RLQ, nondistended. no rebound, no masses. BACK: No CVAT EXT: no cyanosis, clubbing, or edema MSK: No joint redness or swelling NEURO: CN 2-12 grossly intact. Normal movement of 4 extremities. Normal speech and coordination. No tremor SKIN: No rashes or open wounds. PSYCH: normal mood and affect, nl thought process Results Last Vital Signs Temp 36.9 C 04/20/25 13:30 Pulse 103 H 04/20/25 17:13 Resp 17 04/20/25 13:30 BP 125/87 04/20/25 13:30 Pulse Ox 96 04/20/25 13:30 Labs 04/20/25 10:21 04/20/25 10:21 Labs: Laboratory Results - last 24 hr 04/20/25 10:21 WBC 12.23 H RBC 5.84 H Hgb 15.8 Hct 44.9 MCV 77 L MCH 27.1 MCHC 35.2 RDW 13.6 Plt Count 133 MPV 11.0 Immature Gran % 0.4 Neutrophils % 83.9 Lymphocytes % 8.7 Monocytes % 6.5 Eosinophils % 0.1 Basophils % 0.4 Nucleated RBC % 0.0 Absolute Neutrophils 10.26 H Absolute Lymphocytes 1.06 L Absolute Monocytes 0.79 Absolute Eosinophils 0.01 Absolute Basophils 0.05 VBG Lactate 2.4 H* Sodium 127 L Potassium 4.2 Chloride 89 L Carbon Dioxide 22.1 Anion Gap 15.9 H BUN 12 Creatinine 1.0 Est GFR (CKD-EPI 2020) 103.84 Glucose 413 H Calcium 9.0 Total Bilirubin 1.8 H Conjugated Bilirubin 0.2 AST 9 L ALT 10 L Alkaline Phosphatase 76 C-Reactive Protein > 25.00 H Total Protein 8.4 H Albumin 3.6 Lipase 152 H Imaging Imaging Studies: CT abd/pelvis: 1. There is abundant fluid in the right-side of the abdomen extending from around the distal half of the a duodenum and adjacent uncinate process of the pancreas and extending in continuous fashion for this region down subjacent to the inferior aspect of the right hepatic lobe and down the right pericolic gutter all the way into the most dependent aspect of the pelvis. The appendix is bathed in this fluid and is slightly prominent in diameter but this amount of free fluid is not typical of acute appendicitis. 2. Appearance of the duodenum reflects possible duodenitis. Cannot exclude the possibly that the epicenter of disease here is in the distal half of the duodenal C-loop including of the ligament of Treitz. There is some fluid subjacent to the uncinate process of the pancreas but the pancreas itself exhibits normal density. Nevertheless would recommend blood work for pancreatitis. 3. There is hepatomegaly and hepatic steatosis and splenomegaly. There are no esophageal varices.
[2025-04-20 19:23] LABS: Anion Gap 10.1 mmol/L (3-11); BUN 14 mg/dL (7-18); CO2 25.9 mmol/L (21.0-32.0); Calcium 9.0 mg/dL (8.5-10.1); Chloride 94 mmol/L (98-107); Estimated GFR 117.83 (mL/min/1.73m2); Glucose 323 mg/dL (74-106); Potassium 4.0 mmol/L (3.5-5.1); Sodium 130 mmol/L (136-145)
[2025-04-20 19:30] VITALS: BP 122/75; PULSE 118; RESP 19; TEMP 37.3; O2SAT 97
[2025-04-20] MEDS: HYDROmorphone 2 MG/ML SYR 1 MG IVP (20:51)
[2025-04-20 21:07] LABS: Triglyceride 1227 mg/dL (<150)
[2025-04-20 21:18] LABS: LDL CHOLESTEROL 75 mg/dL (<100)
[2025-04-20] MEDS: Insulin Glargine 300 UNITS/3 ML PEN 20 UNITS SC (21:28)
[2025-04-20 21:52] LABS: Hemoglobin A1C 10.9 % (<5.7)
--- NOTE | 2025-04-20 23:54 | CRITCAR_ITS ---
General Date Of Service Date of service: 04/20/25 Time of Service: 23:00 Requesting physician: Jose Garcia Reason for Consult: Hypertriglyceridemia Recommendations: To ICU for insulin drip History of Present Illness History of Present Illness Chief Complaint: Abdominal pain Narrative: Cesar Marcelo is a 29 year old man presenting April 20 with severe abdominal pain initially thought to be appendicitis. After review by general surgery he was diagnosed with pancreatitis. He was found to have diabetes, a new diagnosis. He was subsequently found to have severely elevated triglycerides. Patient reports that he was not aware of his diabetes until April 20 when medicine was consulted. Patient reports that he is adopted; to his knowledge his known relatives are alive and there were no early deaths that he knows of. His abdominal pain is well controlled on interview. A1C 10.9 consistent with new, uncontrolled diabetes. Insulin treatment appropriate while hospitalized and at discharge. Patient needs PCP for close followup. Triglycerides 1227 consistent with severe disease. He does present with worrisome features including lactic acidosis (now resolved), tachycardia in the 100's, leukocytosis > 12k. He does not have organ dysfunction. Given new diabetes diagnosis and patient's general stability, will opt to treat hypertriglyceridemia with insulin drip, which requires ICU level of care. 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) Pilonidal cyst without abscess Adopted Depression Insomnia Surgical History [place] teeth extraction Excision, Pilonidal Cyst Family History (Updated 04/20/25 @ 18:15 by Donny Guadalupe) Brother Diabetes per father, biologic siblings Other Adopted Social History Smoking/Tobacco Use Status: Never Smoking risk assessment performed?: Yes Alcohol Intake: former Drug use: Never Substance use type: does not use Housing: house current occupation: Former [employer] worker, currently on work injury Do you feel safe at home: Yes Do you feel safe in your relationship?: Yes Visit Medication and Allergies Active Medications Generic Name Dose Route Start Last Admin Trade Name Freq PRN Reason Stop Dose Admin Dextrose 0 gm 04/20/25 15:35 Glucose Oral Gel 15 Gm/37.5 Gm Tube PO DIRECTED PRN Dextrose/Water 0 gm 04/20/25 15:35 Dextrose 50%-Water 25 Gm/50 Ml Syr IVP DIRECTED PRN Enoxaparin Sodium 40 mg 04/20/25 14:00 04/20/25 14:41 Enoxaparin 40 Mg/0.4 Ml Syr SC Not Given Q24H CHRISTINA Hydromorphone HCl 1 mg 04/20/25 13:29 04/20/25 20:51 Hydromorphone 2 Mg/Ml Syr IVP 1 mg Q6H PRN PRN Administration Acetaminophen 1,000 mg in 100 mls @ 400 mls/hr 04/20/25 13:29 04/20/25 20:36 Ofirmev IVPB 400 mls/hr Q8H CHRISTINA Administration Metronidazole 500 mg in 100 mls @ 100 mls/hr 04/20/25 22:00 04/20/25 22:41 Flagyl IVPB 100 mls/hr Q8H CHRISTINA Administration Ringer's Solution 1,000 mls @ 75 mls/hr 04/20/25 13:29 04/20/25 17:44 IV 75 mls/hr INFUSION CHRISTINA Infusion Ciprofloxacin 200 mg in 100 mls @ 100 mls/hr 04/20/25 14:15 04/20/25 17:31 Cipro I.V. IVPB Infused NOW [facility] Infusion Ciprofloxacin 400 mg in 200 mls @ 200 mls/hr 04/21/25 02:00 Cipro I.V. IVPB Q12H CHRISTINA IV Miscellaneous Supplies 1 each 04/20/25 13:29 Iv Access IV DIRECTED CHRISTINA Insulin Aspart 0 units 04/20/25 17:00 04/20/25 17:08 Insulin Aspart 300 Units/3 Ml Pen SC 12 units 0800,1200,1700 CHRISTINA Administration Protocol Insulin Glargine 20 units 04/20/25 20:00 04/20/25 21:28 Insulin Glargine 300 Units/3 Ml Pen SC 20 units HS CHRISTINA Administration Ondansetron HCl 4 mg 04/20/25 13:29 Ondansetron 4 Mg/2 Ml Vial IVP Q4H PRN PRN Pantoprazole Sodium 40 mg 04/20/25 14:00 04/20/25 14:24 Pantoprazole 40 Mg Vial IVP 40 mg Q24H CHRISTINA Administration Sodium Chloride 0 ml 04/20/25 13:29 04/20/25 14:24 Normal Saline Flush 10 Ml Syr IVP 40 ml PRN PRN Administration Sodium Chloride 0 ml 04/20/25 20:00 04/20/25 20:36 Normal Saline Flush 10 Ml Syr IVP 10 ml BID CHRISTINA Administration Sodium Chloride 0 ml 04/20/25 13:29 Normal Saline 10 Ml Vial IJ DIRECTED PRN Allergies cefprozil (From Cefzil) Allergy (Verified 10/06/24 08:41) body rash Exam Narrative Exam Narrative: General: This is a pleasant man in mild distress due to abdominal pain HEENT: Normocephalic, atraumatic. Heavy wang. CV: RRR Resp: CTAB Abd: soft, tender to palpation in all 4 quadrants, worst at central low epigastrium MSK: Voluntary motion x4 Neuro: Awake, alert, no focal deficits Assessment and Plan Assessment and plan (1) Hypertriglyceridemia without hypercholesterolemia: Status: Acute Assessment and plan: Triglycerides 1227 Likely untreated diabetes led to elevated trikglycerides led to pancreatitis Concerning symptoms of lactic acidosis and leukocytosis have resolved, tachycardia much improved Discussed option of transfer for plasmapheresis; will defer due to new DM diagnosis and improved clinical presentation Will transfer to ICU and treat with insulin drip Protocol not in place at this facility. Discussed with ICU nursing staff and warehouse laborer. Will start insulin gtt at 20 u/hr countered with D5-0.45% NS, with Na and K control In contrast to DKA treatment, insulin treatment for hypertriglyceridemia is triggered on triglycerides and not on blood glucose, assuming no DKA Stop insulin drip when triglycerides below 500, otherwise stay at 0.1 - 0.3 u/kg/hr with D5 counter BMP q4h to stay on top of potassium, sodium Triglycerides q12H Start fenofibrate when resolved (2) Hypophosphatemia: Status: Acute Assessment and plan: Noted on April 21 morning labs Supplement and recheck (3) Acute pancreatitis: Status: Acute Assessment and plan: Likely due to hypertriglyceridemia exacerbated by uncontrolled diabetes No indication to trend lipase Likely able to tolerate PO today (4) Newly diagnosed diabetes: Status: Acute Assessment and plan: A1C 10.9 Resume basal/correctional insulin when hypertriglyceridemia resolves Patient needs PCP and prescription coverage Results Last Vital Signs Temp 37.3 C 04/20/25 19:30 Pulse 118 H 04/20/25 19:30 Resp 19 04/20/25 19:30 BP 122/75 04/20/25 19:30 Pulse Ox 97 04/20/25 19:30 Labs 04/21/25 04:17 04/21/25 04:17 Labs: Laboratory Results - last 24 hr 04/20/25 04/20/25 04/20/25 10:21 19:02 20:07 WBC 12.23 H RBC 5.84 H Hgb 15.8 Hct 44.9 MCV 77 L MCH 27.1 MCHC 35.2 RDW 13.6 Plt Count 133 MPV 11.0 Immature Gran % 0.4 Neutrophils % 83.9 Lymphocytes % 8.7 Monocytes % 6.5 Eosinophils % 0.1 Basophils % 0.4 Nucleated RBC % 0.0 Absolute Neutrophils 10.26 H Absolute Lymphocytes 1.06 L Absolute Monocytes 0.79 Absolute Eosinophils 0.01 Absolute Basophils 0.05 VBG Lactate 2.4 H* 1.9 Sodium 127 L 130 L Potassium 4.2 4.0 Chloride 89 L 94 L Carbon Dioxide 22.1 25.9 Anion Gap 15.9 H 10.1 BUN 12 14 Creatinine 1.0 0.9 Est GFR (CKD-EPI 2020) 103.84 117.83 Glucose 413 H 323 H Hemoglobin A1c 10.9 H Calcium 9.0 9.0 Total Bilirubin 1.8 H Conjugated Bilirubin 0.2 AST 9 L ALT 10 L Alkaline Phosphatase 76 C-Reactive Protein > 25.00 H Total Protein 8.4 H Albumin 3.6 Triglycerides 1227 H LDL Cholesterol Direct 75 Lipase 152 H
[2025-04-21] VITALS (91 sets, daily range): BP systolic 110–131; BP diastolic 69–88; PULSE 93–126; RESP 12–26; TEMP 36.7–37.6; O2SAT 91–98
[2025-04-21 00:55] LABS: Anion Gap 10.9 mmol/L (3-11); BUN 14 mg/dL (7-18); CO2 28.1 mmol/L (21.0-32.0); Calcium 9.1 mg/dL (8.5-10.1); Chloride 93 mmol/L (98-107); Estimated GFR 117.83 (mL/min/1.73m2); Glucose 292 mg/dL (74-106); Potassium 4.2 mmol/L (3.5-5.1); Sodium 132 mmol/L (136-145)
[2025-04-21] MEDS: Normal Saline 1,000 ML 150 ML IV (01:06)
[2025-04-21] MEDS: INSULIN REGULAR IN 0.9 % NACL 100 UNIT/100 ML BAG IVINF ×2 (01:10→09:36)
[2025-04-21] MEDS: Enoxaparin 40 MG/0.4 ML SYR SC ×2 (01:34→21:14)
[2025-04-21] MEDS: CIPROFLOXACIN 400 MG/200 ML BAG 200 MG IVPB ×2 (02:24→14:08)
[2025-04-21 04:51] LABS: Abs Immature Grans 0.04 10^3/uL (0.0-0.06); HCT 41.6 % (40.0-50.0); HGB 14.3 g/dL (13.5-17.5); Immature Grans % 0.5 %; MCH 26.7 pg (27.0-33.0); MCHC 34.4 % (32.0-36.0); MCV 78 fL (80-95); MPV 11.1 fL (8.0-11.0); Platelet Count 114 10^3/uL (130-400); RBC 5.35 10^6/uL (4.36-5.78); RDW 13.9 % (11.8-14.1); RDW-SD 38.8 fL; WBC 8.49 10^3/uL (4.4-10.8)
[2025-04-21 05:05] LABS: Lipase 61 U/L (<78)
[2025-04-21 05:08] LABS: Magnesium 2.0 mg/dL (1.8-2.4)
[2025-04-21 05:11] LABS: Triglyceride 894 mg/dL (<150)
[2025-04-21 05:22] LABS: C-Reactive Protein > 25.00 mg/dL (<or=0.5)
[2025-04-21] MEDS: ACETAMINOPHEN 1,000 MG/100 ML BAG 400 MG IVPB ×3 (05:26→21:12)
[2025-04-21] MEDS: DEXTROSE 5%-0.45% SALINE 1,000 ML 150 ML IV ×3 (05:34→21:44)
[2025-04-21] MEDS: metroNIDAZOLE 500 MG/100 ML BAG 100 MG IVPB ×3 (05:47→21:14)
[2025-04-21 06:00] LABS: Anion Gap 12.4 mmol/L (3-11); BUN 14 mg/dL (7-18); CO2 24.6 mmol/L (21.0-32.0); Calcium 9.1 mg/dL (8.5-10.1); Chloride 96 mmol/L (98-107); Estimated GFR 122.10 (mL/min/1.73m2); Glucose 228 mg/dL (74-106); Potassium 3.4 mmol/L (3.5-5.1); Sodium 133 mmol/L (136-145)
[2025-04-21] MEDS: Normal Saline Flush 10 ML SYR IVP ×2 (07:56→21:14)
[2025-04-21 08:21] LABS: Anion Gap 8.2 mmol/L (3-11); BUN 13 mg/dL (7-18); CO2 27.8 mmol/L (21.0-32.0); Calcium 9.1 mg/dL (8.5-10.1); Chloride 96 mmol/L (98-107); Estimated GFR 117.83 (mL/min/1.73m2); Glucose 187 mg/dL (74-106); Potassium 3.8 mmol/L (3.5-5.1); Sodium 132 mmol/L (136-145)
[2025-04-21] MEDS: HYDROmorphone 2 MG/ML SYR 1 MG IVP ×2 (08:27→11:09)
--- NOTE | 2025-04-21 10:58 | INITIAL_ITS ---
Date of service: 04/21/25 Time of Service: 10:58 Care Management Initial Assmt Initial Assessment Reason for Hospitalization: abdominal pain Functional Status/Living Situation Patient Presentation: Michael presented to the ED yesterday afternoon with c/o abdominal pain. He was found to have some sort of pancreatitis, appendicitis and new diabetes. Surgery did not feel that OR was needed. Michael was admitted to ICU on an insulin drip, IVF and IV antibiotics in attempt to normalize his electrolytes and blood sugar. Michael was lying in bed when CM met with him today. He was quiet, but polite. His parents and his brother were present. Michael is currently out of work on [employer]. He had previously been working for [employer] and suffered a low back injury. Michael and his family are very concerned that Michael does not have any insurance, understandably. He will have this hospital stay, and will also be started on new medications, which will need to be paid for. With Michael's permission, [facility] referral was sent. [facility] is unfortunately closed today, and Michael was notified of this. They will be open tomorrow. Patient Assistance packet was also given. MEGHAN also spoke with the Truck Supervisor at Michael's PCP office to update her. CC stated that the office is already planning to have Michael meet with their DM educator and also the pharmacist. Michael was made aware of this as well. Town of Residence: [place] Resides with: Other (brother, Kyler) Significant Other/Family: Local (Parents, Aniya and Shailesh, brother, Kyler) Natural Supports: family Employment Status: Other (out on [employer]) Instrumental Activities of Daily Living (ADLs): Independent Medications Medication Management: Issues/Barriers with Cost Advance Directives Advance Directives: Do you have an Advance Directive: N , 13:12 AD On File at [facility]: N 01/05/13, 14:30 Date Asked 04/20/25 04/20/25, 11:27 AD Date Reviewed COLST On File at [facility] COLST Date Scanned Code Status Resuscitation Status Full Code Portal Pt does not currently have a portal and education provided: Yes Insurance Coverage/Financial Issues Insurance: self pay - see above Care Team Visit Care Team Role Provider Type Ruchi Guerrero NP Primary Care Provider NURSE PRACTITIONER Violetta Sexton RDN, [facility] Other Providers CHEST PAINTING AND SEALING SUPERVISOR John Fan RDN Other Providers CHEST PAINTING AND SEALING SUPERVISOR CHANDRIKA Bahena Emergency Provider PHYSICIANS STONE CRUSHER OPERATOR Jose Garcia MD Admit Provider [facility] STAFF PHYSICIAN Attending Provider Discharge Potential Discharge Needs: PCP F/U Appt (DM educator and pharmacist) Anticipated Barriers to Discharge: None Identified Patient/Family Education Needs: Review discharge instructions, discuss Ask Me Three Transportation: Private vehicle Plan: Anticipate that Michael will be discharged home with no new services. He will f/u with his PCP, DM educator and pharmacist, and continue per his plan of care. Michael will transport home in a private vehicle. CM will continue to follow. Social Determinants of Health Screening Social Determinants of health last assessed in clinic: 04/21/25 Will the Patient Participate in the Screening?: Unable to obtain Do you worry about having a steady place to live?: no Problems where you live: no known problems In the past 12 months, have you had to go without electric, gas, oil or water in your home?: no Has lack of transportation kept you from medical appointments or from doing things needed for daily living?: no Has anyone in your life made you feel unsafe or unsupported?: no How hard is it for you to pay for the very basics like food, housing, medical care, and heating? Would you say it is:: Not hard at all Do you want help finding or keeping work or a job?: I do not need or want help If for any reason you need help with day-to-day activities such as bathing, preparing meals, shopping, managing finances, etc., do you get the help you need?: I don?t need any help How often do you feel lonely or isolated from those around you?: Never Do you speak a language other than [place] at home?: No Does the patient want assistance with any of the above?: No Health Related Social Needs Health related social needs details: none 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
--- NOTE | 2025-04-21 11:29 | PHA.REVIEW2 ---
Pharmacy Admission Review Admission Clinical Review Admission Pharmacy Review: Newly diagnosed diabetes (Acute) Acute pancreatitis (Acute) Hypophosphatemia (Acute) Hypertriglyceridemia without hypercholesterolemia (Acute) DVT prophylaxis (Acute) Lactic acidosis (Acute) Hyponatremia (Acute) Hyperglycemia (Acute) Abdominal pain (Acute) cefprozil (From Cefzil) Allergy (Verified 10/06/24 08:41) body rash Resuscitation Status Full Code Height 6 ft Weight 105.9 kg Pharmacy Admission Review Renal Dosing Renal Dosing: BUN 13 mg/dL (7-18) 04/21/25 08:00 Creatinine 0.9 mg/dL (0.70-1.30) 04/21/25 08:00 Medications needing adjustments: Reviewed (CrCl 150.9 mL/min) List of meds needing interventions: Current medications are okay Anticoagulation Anticoagulation: Hgb 14.3 g/dL (13.5-17.5) 04/21/25 04:17 Hct 41.6 % (40.0-50.0) 04/21/25 04:17 Plt Count 114 10^3/uL (130-400) L 04/21/25 04:17 Creatinine 0.9 mg/dL (0.70-1.30) 04/21/25 08:00 DVT Prophylaxis: Reviewed Medications: Enoxaparin (40mg daily) Opiate Usage Evaluate Pain Scale/Pains Meds: Reviewed (hydromorphone IVP 1mg q2h PRN - 1mg/24hrs) Relevant Labs Relevant Labs: Sodium 132 mmol/L (136-145) L 04/21/25 08:00 Potassium 3.8 mmol/L (3.5-5.1) 04/21/25 08:00 Chloride 96 mmol/L (98-107) L 04/21/25 08:00 Phosphorus < 2.0 mg/dL (2.6-4.7) L 04/21/25 04:17 Magnesium 2.0 mg/dL (1.8-2.4) 04/21/25 04:17 C-Reactive Protein > 25.00 mg/dL (<or=0.5) H 04/21/25 04:17 Electrolytes, C-Reactive P, ESR: Reviewed (Has order for Phospa 250mg) DM Control DM Control: Glucose 187 mg/dL (74-106) H 04/21/25 08:00 Hemoglobin A1c 10.9 % (<5.7) H 04/20/25 20:07 Finger Stick Blood Glucose 255 1128 Finger Stick Blood Glucose 255 1128 Finger Stick Blood Glucose 233 1025 Finger Stick Blood Glucose 233 1025 Finger Stick Blood Glucose 216 0931 Finger Stick Blood Glucose 216 0931 Finger Stick Blood Glucose 244 0833 Finger Stick Blood Glucose 244 0833 Finger Stick Blood Glucose 149 0731 Finger Stick Blood Glucose 149 0731 Finger Stick Blood Glucose 92 0627 Finger Stick Blood Glucose 92 0627 Finger Stick Blood Glucose 125 0529 Finger Stick Blood Glucose 125 0529 DM Control: Intervened (newly diagnosed diabetes) Insulin Dosing, Diabetic Medication: Currently on insulin infusion at 5 units/hr. Also have orders for SS insulin and glargine 20 units HS. Reached out to provider to see if these should be put on hold while patient is on infusion. Waiting to hear back. Cardiac Review BP, HR, EF%: Reviewed (HR 103, BP WNL) QTc Review QTc: Reviewed (QT 0.31 from 04/21/25) IV to PO Switch IV Medications: Reviewed (NPO) Home Meds Home Med List reviewed: Reviewed Relevent Home Meds Not ordered & why?: No known home medications Current Meds Current Medication Order Review: Intervened Comments: Changed acetaminophen order to be on an even hour per pharmacy protocol Pharmacy Antibiotic Review Relevant Labs: Relevant Labs 04/21/25 04:17 C-Reactive Protein > 25.00 H WBC 8.49 10^3/uL (4.4-10.8) 04/21/25 04:17 Temperature 36.8 C Temperature 36.9 C Temperature 36.9 C Temperature 37.6 C Temperature 37.6 C Pharmacy Antibiotic Activity: C/S review and Reviewed, no change Comments: Patient is on ciprofloxacin and metronidazole, day 1, for possible pancreatitis? WBC decreased from 12.23 and blood cultures pending.
--- NOTE | 2025-04-21 12:30 | DI.RAD_ITS ---
Exam(s) XR ABD FLAT UPRIGHT PA CHEST CLINICAL HISTORY: abdominal pain. COMPARISON: CT CT ABDOMEN PELVIS W from 04/20/2025 FINDINGS: LUNGS: Clear. No pleural abnormality seen. HEART: Normal. MEDIASTINUM: Normal. BOWEL GAS PATTERN: Mildly dilated loops of small bowel in the left upper quadrant. In gas scattered throughout small bowel and colon. Normal quantity of fecal material. Small air-fluid levels seen. ABNORMAL COLLECTIONS OF AIR: No abnormal collection of air. No pneumoperitoneum. CALCIFICATIONS: None. No radiopaque renal, ureteral, or bladder calcification. IMPRESSION: 1. Mildly dilated small bowel in the left upper quadrant. No evidence of free air. 2. No acute pulmonary findings.
[2025-04-21 12:31] LABS: Anion Gap 6.0 mmol/L (3-11); BUN 13 mg/dL (7-18); CO2 30.0 mmol/L (21.0-32.0); Calcium 9.0 mg/dL (8.5-10.1); Chloride 96 mmol/L (98-107); Estimated GFR 117.83 (mL/min/1.73m2); Glucose 264 mg/dL (74-106); Potassium 3.7 mmol/L (3.5-5.1); Sodium 132 mmol/L (136-145)
[2025-04-21] MEDS: HYDROmorphone 2 MG/ML SYR 1.5 MG IVP (13:26)
[2025-04-21] MEDS: Pantoprazole 40 MG VIAL IVP (14:04)
--- NOTE | 2025-04-21 14:21 | W.PM.PROGNOT ---
Date of Service Date of service: 04/21/25 Time of Service: 14:21 Assessment and Plan Assessment and plan (1) Abdominal pain: Status: Acute Assessment and plan: Abdominal pain with elevated CRP, WBC, and lipase consistent with some degree of pancreatitis. I am not convinced that pancreatiits is the primary causative factor as it doesn't explain imaging findings and RLQ pain alone. CT suggests that duodenal infection may be primary issue, possible ulcer eroding into pancreas? hepatic steatosis and splenomegaly, but labs not c/w cirrhosis/portal hypertension, no transaminitis, no fever to suggest infection like mono. Symptom pattern c/w appendicitis but imaging less c/w this. He is NPO on IV fluids, cipro and metronidazole per surgery, abd film pending today I still does not look toxic, exam not c/w peritonitis, but he is requiring significant pain medications, surgery following. (2) Hypertriglyceridemia without hypercholesterolemia: Status: Acute Assessment and plan: Now on insulin drip to treat this given acute pancreatitis. Will continue until TG below 500. (3) Newly diagnosed diabetes: Status: Acute Assessment and plan: A1c very elevated. We discussed management, starting with insulin, but if type 2 as it appears there is a good chance he can get off insulin in a few months. anti-NIKKO and c-peptide pending DM education ordered here and as outpatient. Now on drip, back to basal/bolus insulin when TG down. (4) Hyponatremia: Status: Acute Assessment and plan: In setting of acute infection, hypovolemia. Has persisted but not worse, follow with supportive care. (5) Lactic acidosis: Status: Acute Assessment and plan: Secondary to acute infection, some dehydration. resovled on repeat which speaks against evolving severe infection. (6) DVT prophylaxis: Status: Acute Assessment and plan: enoxaparin. plts a little low, so follow Subjective Subjective Patient reports: denies bowel movement, nausea, vomiting, shortness of breath or fever Interval history since last seen: Events: Transferred to ICU for insulin drip to treat hypertriglycerides in setting of pancreatitis A1c returned 10.8% c/w new DM, likely type 2 He feels okay. Pain better after hydromorphone. Exam Narrative Exam Narrative: GEN: Alert and oriented x 4, pleasant and cooperative, gives linear history. No acute distress at rest. LUNGS: CTAB with normal effort CV: RRR with no murmurs, gallops, or rubs. ABD: active bowel sounds, soft, tender in RUQ to RLQ, nondistended. no rebound, no masses. EXT: no cyanosis, clubbing, or edema Objective Last Vital Signs Temp 36.8 C 04/21/25 08:30 Pulse 103 H 04/21/25 09:31 Resp 21 04/21/25 09:31 BP 111/79 04/21/25 09:31 Pulse Ox 96 04/21/25 09:31 Laboratory Results - last 24 hr 04/20/25 04/20/25 04/21/25 19:02 20:07 00:14 WBC RBC Hgb Hct MCV MCH MCHC RDW Plt Count MPV Immature Gran % Neutrophils % Lymphocytes % Monocytes % Eosinophils % Basophils % Nucleated RBC % Absolute Neutrophils Absolute Lymphocytes Absolute Monocytes Absolute Eosinophils Absolute Basophils VBG Lactate 1.9 Sodium 130 L Cancelled Potassium 4.0 Cancelled Chloride 94 L Cancelled Carbon Dioxide 25.9 Cancelled Anion Gap 10.1 Cancelled BUN 14 Cancelled Creatinine 0.9 Cancelled Est GFR (CKD-EPI 2020) 117.83 Cancelled Glucose 323 H Cancelled Hemoglobin A1c 10.9 H Calcium 9.0 Cancelled Phosphorus Magnesium Total Bilirubin AST ALT Alkaline Phosphatase C-Reactive Protein Total Protein Albumin Triglycerides 1227 H LDL Cholesterol Direct 75 Lipase 04/21/25 04/21/25 04/21/25 00:30 04:00 04:17 WBC 8.49 RBC 5.35 Hgb 14.3 Hct 41.6 MCV 78 L MCH 26.7 L MCHC 34.4 RDW 13.9 Plt Count 114 L MPV 11.1 H Immature Gran % 0.5 Neutrophils % 84.2 Lymphocytes % 10.0 Monocytes % 4.7 Eosinophils % 0.2 Basophils % 0.4 Nucleated RBC % 0.0 Absolute Neutrophils 7.15 H Absolute Lymphocytes 0.85 L Absolute Monocytes 0.40 Absolute Eosinophils 0.02 Absolute Basophils 0.03 VBG Lactate Sodium 132 L Cancelled 133 L Potassium 4.2 Cancelled 3.4 L Chloride 93 L Cancelled 96 L Carbon Dioxide 28.1 Cancelled 24.6 Anion Gap 10.9 Cancelled 12.4 H BUN 14 Cancelled 14 Creatinine 0.9 Cancelled 0.8 Est GFR (CKD-EPI 2020) 117.83 Cancelled 122.10 Glucose 292 H Cancelled 228 H Hemoglobin A1c Calcium 9.1 Cancelled 9.1 Phosphorus < 2.0 L Magnesium 2.0 Total Bilirubin AST ALT Alkaline Phosphatase C-Reactive Protein > 25.00 H Total Protein Albumin Triglycerides 894 H LDL Cholesterol Direct Lipase 61 04/21/25 04/21/25 04/21/25 05:35 08:00 12:10 WBC RBC Hgb Hct MCV MCH MCHC RDW Plt Count MPV Immature Gran % Neutrophils % Lymphocytes % Monocytes % Eosinophils % Basophils % Nucleated RBC % Absolute Neutrophils Absolute Lymphocytes Absolute Monocytes Absolute Eosinophils Absolute Basophils VBG Lactate Sodium Cancelled 132 L 132 L Potassium Cancelled 3.8 3.7 Chloride Cancelled 96 L 96 L Carbon Dioxide Cancelled 27.8 30.0 Anion Gap Cancelled 8.2 6.0 BUN Cancelled 13 13 Creatinine Cancelled 0.9 0.9 Est GFR (CKD-EPI 2020) Cancelled 117.83 117.83 Glucose Cancelled 187 H 264 H Hemoglobin A1c Calcium Cancelled 9.1 9.0 Phosphorus Magnesium Total Bilirubin Cancelled AST Cancelled ALT Cancelled Alkaline Phosphatase Cancelled C-Reactive Protein Total Protein Cancelled Albumin Cancelled Triglycerides LDL Cholesterol Direct Lipase Time Spent with Patient Time Spent with Patient: 35-49 minutes Time was spent: preparing to see the patient(eg.review tests), obtaining and/or reviewing separately otained hiistory, ordering medications,tests, procedures, referring, communicating with other health childcare center director, indepentently interpreting results, counseling the patient and care coordination
[2025-04-21 17:12] LABS: Anion Gap 8.1 mmol/L (3-11); BUN 13 mg/dL (7-18); CO2 30.9 mmol/L (21.0-32.0); Calcium 9.3 mg/dL (8.5-10.1); Chloride 96 mmol/L (98-107); Estimated GFR 103.84 (mL/min/1.73m2); Glucose 159 mg/dL (74-106); Potassium 3.3 mmol/L (3.5-5.1); Sodium 135 mmol/L (136-145)
[2025-04-21 17:23] LABS: Triglyceride 714 mg/dL (<150)
--- NOTE | 2025-04-21 19:40 | W.PM.PROGNOT ---
Date of Service Date of service: 04/21/25 Time of Service: 18:30 Assessment and Plan Assessment and plan (1) Appendix disease: Status: Acute Assessment and plan: Appendiceal inflammation on admission CT appears secondary to the periduodenal and peripancreatic inflammatory process of the epigastrium. Majority of edema and inflamm is in the epigastric and RUQ areas with only a trace of inflammation ending at the location of the enhancing appendix. His RLQ pain symptom onset suggests he became symptomatic when the appendix inflamed. His persistent severe pain may improve with appendectomy, which would also allow diagnostic look inside the abdomen and an egd could be done at same time to evaluate for peptic ulcer as a cause for the periduod inflammation. We discussed this at length this evening and he feels he is currently feeling a lot better and does not feel a plan change to diagnostic/lap appendectomy is needed. I dont think he is in danger from the appendix inflammation and continuing current plan of care is acceptable and safe. cont abx, fluids. Will allow clear liquids and advance as he improves. (2) Acute pancreatitis: Status: Acute Assessment and plan: secondary to hypertriglyceridemia, both improved this evening. No epigastric pain during his course which raises the question of primary pancreatitis vs a secondary pancreatic inflammation from a duodenal inflmmatory process. EGD could be done to rule out a penetrating duodenal ulcer that could cause the same CT and lab findings (aside from the triglycerides). He declines at this time. Will reevaluate tomorrow. (3) Hypertriglyceridemia without hypercholesterolemia: Status: Acute Assessment and plan: insulin drip, improving, management per hospitalist. appreciate input. Subjective Subjective Patient reports: other (Patient complains of right lower quadrant and right mid abdominal pain. The pain has persisted today but finally this evening feels improved) Interval history since last seen: He notes that this morning he was unable to even touch the abdomen or move in the bed. Since then he has been able to get up to void which she was finally able to do this evening. He had not voided since admission but had over 1500 mL in his bladder at the time he emptied this evening. Appetite is poor. No nausea this evening. Objective Last Vital Signs Temp 98.2 F 04/21/25 08:30 Pulse 99 H 04/21/25 18:01 Resp 19 04/21/25 18:01 BP 120/72 04/21/25 18:01 Pulse Ox 94 04/21/25 18:01 Laboratory Results - last 24 hr 04/20/25 04/21/25 04/21/25 20:07 00:14 00:30 WBC RBC Hgb Hct MCV MCH MCHC RDW Plt Count MPV Immature Gran % Neutrophils % Lymphocytes % Monocytes % Eosinophils % Basophils % Nucleated RBC % Absolute Neutrophils Absolute Lymphocytes Absolute Monocytes Absolute Eosinophils Absolute Basophils VBG Lactate 1.9 Sodium Cancelled 132 L Potassium Cancelled 4.2 Chloride Cancelled 93 L Carbon Dioxide Cancelled 28.1 Anion Gap Cancelled 10.9 BUN Cancelled 14 Creatinine Cancelled 0.9 Est GFR (CKD-EPI 2020) Cancelled 117.83 Glucose Cancelled 292 H Hemoglobin A1c 10.9 H Calcium Cancelled 9.1 Phosphorus Magnesium Total Bilirubin AST ALT Alkaline Phosphatase C-Reactive Protein Total Protein Albumin Triglycerides 1227 H LDL Cholesterol Direct 75 Lipase 04/21/25 04/21/25 04/21/25 04:00 04:17 05:35 WBC 8.49 RBC 5.35 Hgb 14.3 Hct 41.6 MCV 78 L MCH 26.7 L MCHC 34.4 RDW 13.9 Plt Count 114 L MPV 11.1 H Immature Gran % 0.5 Neutrophils % 84.2 Lymphocytes % 10.0 Monocytes % 4.7 Eosinophils % 0.2 Basophils % 0.4 Nucleated RBC % 0.0 Absolute Neutrophils 7.15 H Absolute Lymphocytes 0.85 L Absolute Monocytes 0.40 Absolute Eosinophils 0.02 Absolute Basophils 0.03 VBG Lactate Sodium Cancelled 133 L Cancelled Potassium Cancelled 3.4 L Cancelled Chloride Cancelled 96 L Cancelled Carbon Dioxide Cancelled 24.6 Cancelled Anion Gap Cancelled 12.4 H Cancelled BUN Cancelled 14 Cancelled Creatinine Cancelled 0.8 Cancelled Est GFR (CKD-EPI 2020) Cancelled 122.10 Cancelled Glucose Cancelled 228 H Cancelled Hemoglobin A1c Calcium Cancelled 9.1 Cancelled Phosphorus < 2.0 L Magnesium 2.0 Total Bilirubin Cancelled AST Cancelled ALT Cancelled Alkaline Phosphatase Cancelled C-Reactive Protein > 25.00 H Total Protein Cancelled Albumin Cancelled Triglycerides 894 H LDL Cholesterol Direct Lipase 61 04/21/25 04/21/25 04/21/25 08:00 12:10 16:55 WBC RBC Hgb Hct MCV MCH MCHC RDW Plt Count MPV Immature Gran % Neutrophils % Lymphocytes % Monocytes % Eosinophils % Basophils % Nucleated RBC % Absolute Neutrophils Absolute Lymphocytes Absolute Monocytes Absolute Eosinophils Absolute Basophils VBG Lactate Sodium 132 L 132 L 135 L Potassium 3.8 3.7 3.3 L Chloride 96 L 96 L 96 L Carbon Dioxide 27.8 30.0 30.9 Anion Gap 8.2 6.0 8.1 BUN 13 13 13 Creatinine 0.9 0.9 1.0 Est GFR (CKD-EPI 2020) 117.83 117.83 103.84 Glucose 187 H 264 H 159 H Hemoglobin A1c Calcium 9.1 9.0 9.3 Phosphorus Magnesium Total Bilirubin AST ALT Alkaline Phosphatase C-Reactive Protein Total Protein Albumin Triglycerides 714 H LDL Cholesterol Direct Lipase Objective Narrative Objective Narrative: EOMI, MMM normal resp effort abdomen is nondistended, tender to palp RLQ. He does have focal voluntary guarding in RLQ. no Diffuse peritonitis. Epigastrium nontender. Time Spent with Patient Time Spent with Patient: 25-34 minutes Time was spent: preparing to see the patient(eg.review tests), referring, communicating with other health healthcare administrator, counseling the patient and care coordination
[2025-04-21 19:47] LABS: Glucose 500 mg/dL (Negative)
[2025-04-21 20:07] LABS: C & S Indicated? No; RBC Negative HPF (0-2); WBC Negative HPF (0-5)
[2025-04-21 20:26] LABS: Anion Gap 7.4 mmol/L (3-11); BUN 12 mg/dL (7-18); CO2 30.6 mmol/L (21.0-32.0); Calcium 9.0 mg/dL (8.5-10.1); Chloride 98 mmol/L (98-107); Estimated GFR 117.83 (mL/min/1.73m2); Glucose 115 mg/dL (74-106); Potassium 3.5 mmol/L (3.5-5.1); Sodium 136 mmol/L (136-145)
[2025-04-21] MEDS: Insulin Glargine 300 UNITS/3 ML PEN 20 UNITS SC (21:44)
[2025-04-21] MEDS: INSULIN REGULAR IN 0.9 % NACL 100 UNIT/100 ML BAG 8 UNIT IVINF (21:45)
[2025-04-22] VITALS (27 sets, daily range): BP systolic 113–130; BP diastolic 70–83; PULSE 87–126; RESP 16–28; TEMP 36.5–37.2; O2SAT 91–97
[2025-04-22] MEDS: CIPROFLOXACIN 400 MG/200 ML BAG 200 MG IVPB ×2 (02:17→14:05)
[2025-04-22] MEDS: DEXTROSE 5%-0.45% SALINE 1,000 ML 150 ML IV ×3 (04:35→18:49)
[2025-04-22] MEDS: ACETAMINOPHEN 1,000 MG/100 ML BAG 400 MG IVPB ×3 (06:00→22:22)
[2025-04-22] MEDS: metroNIDAZOLE 500 MG/100 ML BAG 100 MG IVPB ×3 (06:01→23:31)
[2025-04-22 06:51] LABS: HCT 36.1 % (40.0-50.0); HGB 12.0 g/dL (13.5-17.5); MCH 26.6 pg (27.0-33.0); MCHC 33.2 % (32.0-36.0); MCV 80 fL (80-95); MPV 11.1 fL (8.0-11.0); Platelet Count 106 10^3/uL (130-400); RBC 4.51 10^6/uL (4.36-5.78); RDW 13.7 % (11.8-14.1); RDW-SD 39.8 fL; WBC 7.31 10^3/uL (4.4-10.8)
[2025-04-22 07:11] LABS: Triglyceride 419 mg/dL (<150)
[2025-04-22 07:13] LABS: ALT 22 U/L (16-63); AST 18 U/L (15-37); Albumin 2.5 g/dL (3.4-5.0); Alkaline Phosphatase 64 U/L (46-116); Bilirubin, Direct 0.2 mg/dL (0.0-0.2); Bilirubin, Total 0.7 mg/dL (0.2-1.0); Total Protein 6.2 g/dL (6.4-8.2)
--- NOTE | 2025-04-22 07:36 | PGE_ITS ---
Date of Service Date of service: 04/22/25 Time of Service: 07:36 Assessment and Plan Assessment and plan (1) Appendix disease: Status: Acute Assessment and plan: He is slowly making improvements and describes a moderate amount of improvement in his pain. He is tolerating a clear liquid diet without any nausea, vomiting or increase in his pain. Which is all reassuring. Encouraged ambulation and sitting in the chair throughout the day as tolerated. Overall, he appears like he is feeling better. I really think all of this is secondary to pancreatitis, which seems to be caused by his elevated triglyceride level. I think that the irritation from the pancreatic juice is what drove the symptoms in the right lower quadrant as that fluid had nowhere else to go from the retroperitoneum. Certainly, he has no indications for appendectomy at this point. For now, we can let him eat and drink what ever he likes so long as his symptoms remain controlled. Hopefully, he will be able to transition over from the insulin drip over the next day or 2, and I suspect that once his diabetes is better managed, his triglyceride should also fall in line, and the likelihood of recurrent pancreatitis should be quite low.. (2) Acute pancreatitis: Status: Acute (3) Hypertriglyceridemia without hypercholesterolemia: Status: Acute Assessment and plan: insulin drip, improving, management per hospitalist. appreciate input. Subjective Subjective Interval history since last seen: Arrive with the patient resting comfortably in bed. He denies any nausea or vomiting. He describes his pain is improved today. Describes that getting OOB, increases his discomfort. I agree with Ilda's note from this morning. This afternoon, he looks quite comfortable. Has been able to tolerate some food without any significant symptoms. He is a little bit frustrated about not being able to get up and move around much because of all the pumps, but otherwise things seem to be going well. Exam Const General: cooperative, healthy appearing and comfortable Orientation: alert and oriented x3 Resp Effort & Inspection: normal respiratory effort, no audible wheezes and no cough GI Inspection: normal to inspection and non-distended Palpation: soft, no guarding and tender in the RLQ Objective Last Vital Signs Temp 37.2 C 04/22/25 05:12 Pulse 102 H 04/22/25 06:01 Resp 19 04/22/25 06:01 BP 120/81 07/31/25 06:01 Pulse Ox 94 04/22/25 06:01 Laboratory Results - last 24 hr 04/21/25 04/21/25 04/21/25 08:00 12:10 16:45 WBC RBC Hgb Hct MCV MCH MCHC RDW Plt Count MPV Sodium 132 L 132 L Potassium 3.8 3.7 Chloride 96 L 96 L Carbon Dioxide 27.8 30.0 Anion Gap 8.2 6.0 BUN 13 13 Creatinine 0.9 0.9 Est GFR (CKD-EPI 2020) 117.83 117.83 Glucose 187 H 264 H Calcium 9.1 9.0 Total Bilirubin Conjugated Bilirubin AST ALT Alkaline Phosphatase Total Protein Albumin Triglycerides Urine Color Yellow Urine Clarity Turbid Urine pH 6.0 Ur Specific [place] >= 1.030 H Urine Protein 100 H Urine Ketones 80 H Urine Blood Negative Urine Nitrite Negative Urine Bilirubin Small H Urine Urobilinogen 1.0 H Ur Leukocyte Esterase Negative Urine RBC Negative Urine WBC Negative Ur Epithelial Cells Negative Urine Crystals Many Amorphous Urine Bacteria Packed Urine Casts Negative Urine Mucus Negative Ur Culture Indicated? No Urine Glucose 500 H 04/21/25 04/21/25 04/22/25 16:55 20:00 06:05 WBC 7.31 RBC 4.51 Hgb 12.0 L D Hct 36.1 L MCV 80 MCH 26.6 L MCHC 33.2 RDW 13.7 Plt Count 106 L MPV 11.1 H Sodium 135 L 136 Potassium 3.3 L 3.5 Chloride 96 L 98 Carbon Dioxide 30.9 30.6 Anion Gap 8.1 7.4 BUN 13 12 Creatinine 1.0 0.9 Est GFR (CKD-EPI 2020) 103.84 117.83 Glucose 159 H 115 H Calcium 9.3 9.0 Total Bilirubin 0.7 Conjugated Bilirubin 0.2 AST 18 ALT 22 Alkaline Phosphatase 64 Total Protein 6.2 L Albumin 2.5 L Triglycerides 714 H 419 H Urine Color Urine Clarity Urine pH Ur Specific [place] Urine Protein Urine Ketones Urine Blood Urine Nitrite Urine Bilirubin Urine Urobilinogen Ur Leukocyte Esterase Urine RBC Urine WBC Ur Epithelial Cells Urine Crystals Urine Bacteria Urine Casts Urine Mucus Ur Culture Indicated? Urine Glucose Time Spent with Patient Time Spent with Patient: <25 minutes Time was spent: preparing to see the patient(eg.review tests), obtaining and/or reviewing separately otained hiistory and counseling the patient
[2025-04-22 07:47] LABS: LDL CHOLESTEROL 92 mg/dL (<100)
[2025-04-22] MEDS: Normal Saline Flush 10 ML SYR IVP ×2 (09:46→22:22)
[2025-04-22] MEDS: INSULIN REGULAR IN 0.9 % NACL 100 UNIT/100 ML BAG 6 UNIT IVINF (11:32)
--- NOTE | 2025-04-22 13:23 | W.PM.PROGNOT ---
Date of Service Date of service: 04/22/25 Time of Service: 13:23 Assessment and Plan Assessment and plan (1) Abdominal pain: Status: Acute Assessment and plan: Abdominal pain with elevated CRP, WBC, and lipase consistent with some degree of pancreatitis. I am not convinced that pancreatiits is the primary causative factor as it doesn't explain imaging findings and RLQ pain alone. CT suggests that duodenal infection may be primary issue, possible ulcer eroding into pancreas? hepatic steatosis and splenomegaly, but labs not c/w cirrhosis/portal hypertension, no transaminitis, no fever to suggest infection like mono. Symptom pattern c/w appendicitis but imaging less c/w this. He is NPO on IV fluids, cipro and metronidazole per surgery, abd film pending today I still does not look toxic, exam not c/w peritonitis, but he is requiring significant pain medications, surgery following. 04/22/25 At this point, surgery is being postponed and hopefully will not be necessary. Advance diet per recommendations from Pt remains on cipro/flagyl. (2) Hypertriglyceridemia without hypercholesterolemia: Status: Acute Assessment and plan: Now on insulin drip to treat this given acute pancreatitis. Will continue until TG below 500. 04/22/25 TG this AM are 419. Will recheck in am and if continuing to improve, will dc insulin gtt (3) Newly diagnosed diabetes: Status: Acute Assessment and plan: A1c very elevated. We discussed management, starting with insulin, but if type 2 as it appears there is a good chance he can get off insulin in a few months. anti-NIKKO and c-peptide pending DM education ordered here and as outpatient. Now on drip, back to basal/bolus insulin when TG down. 04/22/25 noted. BGL 143/143/114/114/117 (4) Hyponatremia: Status: Acute Assessment and plan: In setting of acute infection, hypovolemia. Has persisted but not worse, follow with supportive care. 04/22/25 No lab results available as of 1329. Recheck in am (5) Lactic acidosis: Status: Acute Assessment and plan: Secondary to acute infection, some dehydration. resovled on repeat which speaks against evolving severe infection. 04/22/25 resolved (6) DVT prophylaxis: Status: Acute Assessment and plan: enoxaparin. plts a little low, so follow 04/22/25 133->114->106 will c/w lovenox for now as pt does not appear to be heading to OR anytime soon Subjective Subjective Interval history since last seen: Pt seen and examined in his room this am. Pt states pain is improving but still with some anorexia. Notes from GS reviewed Exam Narrative Exam Narrative: GEN: Alert and oriented x 4, pleasant and cooperative, gives linear history. No acute distress at rest. LUNGS: CTAB with normal effort CV: RRR with no murmurs, gallops, or rubs. ABD: active bowel sounds, soft, tender in RUQ to RLQ, nondistended. no rebound, no masses. EXT: no cyanosis, clubbing, or edema Objective Last Vital Signs Temp 36.5 C 04/22/25 08:01 Pulse 96 H 04/22/25 10:01 Resp 22 04/22/25 10:01 BP 117/77 04/22/25 10:01 Pulse Ox 91 L 04/22/25 10:01 Laboratory Results - last 24 hr 04/21/25 04/21/25 04/21/25 16:45 16:55 20:00 WBC RBC Hgb Hct MCV MCH MCHC RDW Plt Count MPV Sodium 135 L 136 Potassium 3.3 L 3.5 Chloride 96 L 98 Carbon Dioxide 30.9 30.6 Anion Gap 8.1 7.4 BUN 13 12 Creatinine 1.0 0.9 Est GFR (CKD-EPI 2020) 103.84 117.83 Glucose 159 H 115 H Calcium 9.3 9.0 Total Bilirubin Conjugated Bilirubin AST ALT Alkaline Phosphatase Total Protein Albumin Triglycerides 714 H LDL Cholesterol Direct Urine Color Yellow Urine Clarity Turbid Urine pH 6.0 Ur Specific [place] >= 1.030 H Urine Protein 100 H Urine Ketones 80 H Urine Blood Negative Urine Nitrite Negative Urine Bilirubin Small H Urine Urobilinogen 1.0 H Ur Leukocyte Esterase Negative Urine RBC Negative Urine WBC Negative Ur Epithelial Cells Negative Urine Crystals Many Amorphous Urine Bacteria Packed Urine Casts Negative Urine Mucus Negative Ur Culture Indicated? No Urine Glucose 500 H 04/22/25 06:05 WBC 7.31 RBC 4.51 Hgb 12.0 L D Hct 36.1 L MCV 80 MCH 26.6 L MCHC 33.2 RDW 13.7 Plt Count 106 L MPV 11.1 H Sodium Potassium Chloride Carbon Dioxide Anion Gap BUN Creatinine Est GFR (CKD-EPI 2020) Glucose Calcium Total Bilirubin 0.7 Conjugated Bilirubin 0.2 AST 18 ALT 22 Alkaline Phosphatase 64 Total Protein 6.2 L Albumin 2.5 L Triglycerides 419 H LDL Cholesterol Direct 92 Urine Color Urine Clarity Urine pH Ur Specific [place] Urine Protein Urine Ketones Urine Blood Urine Nitrite Urine Bilirubin Urine Urobilinogen Ur Leukocyte Esterase Urine RBC Urine WBC Ur Epithelial Cells Urine Crystals Urine Bacteria Urine Casts Urine Mucus Ur Culture Indicated? Urine Glucose Time Spent with Patient Time Spent with Patient: 25-34 minutes Time was spent: preparing to see the patient(eg.review tests), obtaining and/or reviewing separately otained hiistory, ordering medications,tests, procedures, referring, communicating with other health career development engineer, indepentently interpreting results, counseling the patient and care coordination
[2025-04-22] MEDS: Pantoprazole 40 MG VIAL IVP (14:06)
--- NOTE | 2025-04-22 14:06 | PDOC.CMPRO ---
Date of service: 04/22/25 Time of Service: 14:06 Care Management Progress Note Progress Note Text Progress Note Text: Michael was sitting up in bed with a tray of solid foods in front of him, when CM met with him earlier today. He was very excited to have some real food. Michael's mom was present, too. Michael met with the hospice educator today, and feels that was helpful. Michael was informed by CM that he will be referred to both the hospice educator and the pharmacist at his PCP office. He and his mom were pleased about that. Michael is still in ICU on an insulin gtt, and also IVF to help balance his blood sugar level. His insulin drip is at a lower rate than yesterday. CM heard from Juliana that they had been in touch with Michael and his dad, Shailesh, and have started the medicaid application. Discharge Potential Discharge Needs: PCP F/U Appt and Other (DM educator and pharmacist at PCP office.) Anticipated Barriers to Discharge: None Identified Patient/Family Education Needs: Review discharge instructions, discuss Ask Me Three Transportation: Private vehicle Plan: Anticipate that Michael will be discharged home with no new services. He will f/u with his PCP, DM educator and pharmacist, and continue per his plan of care. Michael will transport home in a private vehicle. CM will continue to follow. Social Determinants of Health Screening Social Determinants of health last assessed in clinic: 04/21/25 Will the Patient Participate in the Screening?: Unable to obtain Do you worry about having a steady place to live?: no Problems where you live: no known problems In the past 12 months, have you had to go without electric, gas, oil or water in your home?: no Has lack of transportation kept you from medical appointments or from doing things needed for daily living?: no Has anyone in your life made you feel unsafe or unsupported?: no How hard is it for you to pay for the very basics like food, housing, medical care, and heating? Would you say it is:: Not hard at all Do you want help finding or keeping work or a job?: I do not need or want help If for any reason you need help with day-to-day activities such as bathing, preparing meals, shopping, managing finances, etc., do you get the help you need?: I don?t need any help How often do you feel lonely or isolated from those around you?: Never Do you speak a language other than [place] at home?: No Does the patient want assistance with any of the above?: No Health Related Social Needs Health related social needs details: none
[2025-04-22] MEDS: Insulin Glargine 300 UNITS/3 ML PEN 20 UNITS SC (20:27)
[2025-04-22] MEDS: Enoxaparin 40 MG/0.4 ML SYR SC (22:23)
[2025-04-23] VITALS (62 sets, daily range): BP systolic 115–119; BP diastolic 71–83; PULSE 91–107; RESP 16–29; TEMP 36.6–37.2; O2SAT 96–98
[2025-04-23] MEDS: DEXTROSE 5%-0.45% SALINE 1,000 ML 150 ML IV (01:18)
[2025-04-23] MEDS: INSULIN REGULAR IN 0.9 % NACL 100 UNIT/100 ML BAG 6 UNIT IVINF (04:14)
[2025-04-23] MEDS: CIPROFLOXACIN 400 MG/200 ML BAG 200 MG IVPB (06:15)
[2025-04-23] MEDS: metroNIDAZOLE 500 MG/100 ML BAG 100 MG IVPB (06:21)
[2025-04-23] MEDS: ACETAMINOPHEN 1,000 MG/100 ML BAG 400 MG IVPB ×2 (07:34→16:29)
[2025-04-23 07:45] LABS: Abs Immature Grans 0.04 10^3/uL (0.0-0.06); HCT 33.3 % (40.0-50.0); HGB 11.1 g/dL (13.5-17.5); Immature Grans % 0.6 %; MCH 26.9 pg (27.0-33.0); MCHC 33.3 % (32.0-36.0); MCV 81 fL (80-95); MPV 10.3 fL (8.0-11.0); Platelet Count 132 10^3/uL (130-400); RBC 4.13 10^6/uL (4.36-5.78); RDW 13.7 % (11.8-14.1); RDW-SD 40.5 fL; WBC 7.07 10^3/uL (4.4-10.8)
[2025-04-23 07:56] LABS: ALT 22 U/L (16-63); AST 18 U/L (15-37); Albumin 2.4 g/dL (3.4-5.0); Alkaline Phosphatase 67 U/L (46-116); Anion Gap 8.0 mmol/L (3-11); BUN 5 mg/dL (7-18); Bilirubin, Total 0.5 mg/dL (0.2-1.0); CO2 30.0 mmol/L (21.0-32.0); Calcium 8.5 mg/dL (8.5-10.1); Chloride 101 mmol/L (98-107); Estimated GFR 117.83 (mL/min/1.73m2); Glucose 131 mg/dL (74-106); Sodium 139 mmol/L (136-145); Total Protein 6.2 g/dL (6.4-8.2)
[2025-04-23 07:58] LABS: Potassium 2.8 mmol/L (3.5-5.1)
--- NOTE | 2025-04-23 08:01 | PGE_ITS ---
Date of Service Date of service: 04/23/25 Time of Service: 08: Assessment and Plan Assessment and plan (1) Appendix disease: Status: Acute Assessment and plan: Cesar is now tolerating a regular diet in small amounts. Pain continues to decrease each day and he is tolerating increased activity and ambulation. Encouraged him to continue with sitting in the chair and ambulation throughout the day. He did have a BM yesterday. Continue with slowly increasing PO intake. No surgical intervention required at this time. Appearance of appendix on CT is suspected to be a secondary inflammatory reaction to the pancreatitis and the edema it caused in the paracolic gutter. Discussed w hospitalist and we will discontinue antibiotics at this time. His symptoms are improved with management of pancreatitis and hypertriglyceridemia. Given that clinical picture is not consistent with appendicitis, I have no plan to operate. Will transition his care to the hospitalists service. (2) Acute pancreatitis: Status: Acute Assessment and plan: improving. Off insulin drip now and triglycerides are down to 400 range. (3) Hypertriglyceridemia without hypercholesterolemia: Status: Acute Assessment and plan: improved. (4) Newly diagnosed diabetes: Status: Acute Assessment and plan: blood glucose elevations requiring lantus and sliding scale insulin at mealtime. will defer to hospitalist on the plan of transition to home and to primary care from his acute stay. (5) Hypokalemia: Status: Acute Assessment and plan: significant hypokalemia today, potassium replacement ordered PO. recheck in AM. Subjective Subjective Interval history since last seen: Patient describes that he continues to feel small improvements. He states that he tolerated regular food last night, his limiting factor was that he has a low appetite and became full quickly. Exam Const General: cooperative, healthy appearing and comfortable Orientation: alert and oriented x3 Resp Effort & Inspection: normal respiratory effort GI Inspection: normal to inspection and non-distended Palpation: soft, no guarding and tender in the RLQ Objective Last Vital Signs Temp 36.9 C 04/23/25 01:32 Pulse 92 H 04/23/25 00:01 Resp 16 04/23/25 01:32 BP 115/73 04/23/25 00:01 Pulse Ox 96 04/22/25 20:01 Laboratory Results - last 24 hr 04/23/25 04/23/2525 05:35 05:45 07:30 WBC Cancelled 7.07 RBC Cancelled 4.13 L Hgb Cancelled 11.1 L Hct Cancelled 33.3 L MCV Cancelled 81 MCH Cancelled 26.9 L MCHC Cancelled 33.3 RDW Cancelled 13.7 Plt Count Cancelled 132 MPV Cancelled 10.3 Immature Gran % Cancelled 0.6 Neutrophils % Cancelled 76.4 Band Neutrophils % Cancelled Lymphocytes % Cancelled 12.9 Atypical Lymphs % Cancelled Monocytes % Cancelled 9.2 Eosinophils % Cancelled 0.6 Basophils % Cancelled 0.3 Metamyelocytes % Cancelled Myelocytes % Cancelled Promyelocytes % Cancelled Other Cells % Cancelled Nucleated RBC % Cancelled 0.0 Absolute Neutrophils Cancelled 5.41 Absolute Lymphocytes Cancelled 0.91 L Absolute Monocytes Cancelled 0.65 Absolute Eosinophils Cancelled 0.04 Absolute Basophils Cancelled 0.02 RBC Morphology Cancelled Polychromasia Cancelled Hypochromasia Cancelled Poikilocytosis Cancelled Basophilic Stippling Cancelled Anisocytosis Cancelled Microcytosis Cancelled Macrocytosis Cancelled Spherocytes Cancelled Tear Drop Cells Cancelled Ovalocytes Cancelled Stomatocytes Cancelled [place] Bodies Cancelled Vidal Cells/Echinocytes Cancelled Acanthocytes (Spur) Cancelled Schistocytes Cancelled Sodium Cancelled Cancelled 139 Potassium Cancelled Cancelled 2.8 L* Chloride Cancelled Cancelled 101 Carbon Dioxide Cancelled Cancelled 30.0 Anion Gap Cancelled Cancelled 8.0 BUN Cancelled Cancelled 5 L Creatinine Cancelled Cancelled 0.9 Est GFR (CKD-EPI 2020) Cancelled Cancelled 117.83 Glucose Cancelled Cancelled 131 H Calcium Cancelled Cancelled 8.5 Total Bilirubin Cancelled 0.5 AST Cancelled 18 ALT Cancelled 22 Alkaline Phosphatase Cancelled 67 Total Protein Cancelled 6.2 L Albumin Cancelled 2.4 L Triglycerides Cancelled Objective Narrative Objective Narrative: Awake, NAD eomi, MMM calm, recumbant in bed abdomen is nondistended. Mild R mid and R lower TTP without rebound or guarding. no tenderness in abdomen otherwise. Time Spent with Patient Time Spent with Patient: <25 minutes Time was spent: preparing to see the patient(eg.review tests), obtaining and/or reviewing separately otained hiistory and counseling the patient
[2025-04-23 08:09] LABS: Triglyceride 324 mg/dL (<150)
[2025-04-23] MEDS: Potassium Chloride 20 MEQ TABCR 40 MEQ PO ×3 (09:03→19:51)
[2025-04-23] MEDS: Polyethylene Glycol 3350 17 GM PACKET PO (09:05)
[2025-04-23] MEDS: Normal Saline Flush 10 ML SYR IVP ×2 (09:05→19:51)
--- NOTE | 2025-04-23 09:19 | W.INDIABCONS ---
Date of service: 04/22/25 Time of Service: 13:30 Diabetes Inpatient Consult Reason for Visit: consult -diabetes ed/mgt DESCRIPTION/ASSESSMENT: Met with Oli and visiting family for diabetes consult. States diabetes in his biological father as far as he knows. Affirmed it can be overwhelming getting dx of diabetes and trying to make changes to imrove glucose control. Oli on workmans comp - back pain limits activity. From our conversation, sounds like oli has had a history of mtn dew preference - mom states he is a pretty picky eater. A1c on 04/20 was 10.9 was put on insulin drip and basal insulin and no just on basal insulin at 20u HS.- glucose improved significantly with fasting today (04/23) at 131 and breakfast fingerstick 123. He is getting repleted with oral phos (<2.0 on 04/21) and ordered for 40mEq TID of KCl for potassium today of 2.8 INTERVENTION: reviewed handouts and spoke with family on general approach to healthy eating - avoiding SSB's as well as fruit juice, trying to meet protein needs with more plant protein choices involved to avoid extra fat and excessive kcals from animal sources, trying to get to low added sugar intake of 20 or less and trying to hit a minimum of 30g of fiber most days. Would recommend continuing to follow glucose pattern this admission and see how he continues to do on basal insulin alone. This could be ordered at discharge with instructions on tritrating according to fasting glucose - would need a glucometer for home. metformin can also be considered as combination therapy at discharge or deferred to PCP to consider at follow up. PLAN: will continue to monitor weight, po intake, nutrition-related labs, and opportunities for more education. Pt given card to contact if desiring outpatient appts. Time Spent in Nutritional Counseling and Treatment: 25 min
--- NOTE | 2025-04-23 11:10 | PGE_ITS ---
Date of Service Date of service: 04/23/25 Time of Service: 11:10 Assessment and Plan Assessment and plan (1) Abdominal pain: Status: Acute Assessment and plan: Abdominal pain with elevated CRP, WBC, and lipase consistent with some degree of pancreatitis. I am not convinced that pancreatiits is the primary causative factor as it doesn't explain imaging findings and RLQ pain alone. CT suggests that duodenal infection may be primary issue, possible ulcer eroding into pancreas? hepatic steatosis and splenomegaly, but labs not c/w cirrhosis/portal hypertension, no transaminitis, no fever to suggest infection like mono. Symptom pattern c/w appendicitis but imaging less c/w this. He is NPO on IV fluids, cipro and metronidazole per surgery, abd film pending today I still does not look toxic, exam not c/w peritonitis, but he is requiring significant pain medications, surgery following. 04/22/25 At this point, surgery is being postponed and hopefully will not be necessary. Advance diet per recommendations from Pt remains on cipro/flagyl. 04/23/25 Will stop abx as pt does not appear to have appendicitis (2) Hypertriglyceridemia without hypercholesterolemia: Status: Acute Assessment and plan: Now on insulin drip to treat this given acute pancreatitis. Will continue until TG below 500. 04/22/25 TG this AM are 419. Will recheck in am and if continuing to improve, will dc insulin gtt 04/23/25 TG 342. Will stop insulin drip and recheck in am. Will start statin vs niacin (3) Newly diagnosed diabetes: Status: Acute Assessment and plan: A1c very elevated. We discussed management, starting with insulin, but if type 2 as it appears there is a good chance he can get off insulin in a few months. anti-NIKKO and c-peptide pending DM education ordered here and as outpatient. Now on drip, back to basal/bolus insulin when TG down. 04/22/25 noted. BGL 143/143/114/114/117 (4) Hyponatremia: Status: Acute Assessment and plan: In setting of acute infection, hypovolemia. Has persisted but not worse, follow with supportive care. 04/22/25 No lab results available as of 1329. Recheck in am (5) Lactic acidosis: Status: Acute Assessment and plan: Secondary to acute infection, some dehydration. resovled on repeat which speaks against evolving severe infection. 04/22/25 resolved (6) DVT prophylaxis: Status: Acute Assessment and plan: enoxaparin. plts a little low, so follow 04/22/25 133->114->106 will c/w lovenox for now as pt does not appear to be heading to OR anytime soon\ 04/23/25 Platelets normalized Subjective Subjective Interval history since last seen: PT seen and examined. Notes reviewed from GS. Will stop abx per recommendations by GS. Exam Narrative Exam Narrative: GEN: Alert and oriented x 4, pleasant and cooperative, gives linear history. No acute distress at rest. LUNGS: CTAB with normal effort CV: RRR with no murmurs, gallops, or rubs. ABD: active bowel sounds, soft, tender in RUQ to RLQ, nondistended. no rebound, no masses. EXT: no cyanosis, clubbing, or edema Objective Last Vital Signs Temp 36.6 C 04/23/25 04:30 Pulse 91 H 04/23/25 09:12 Resp 27 H 04/23/25 06:01 BP 119/81 04/23/25 09:12 Pulse Ox 96 04/22/25 20:01 Laboratory Results - last 24 hr 04/23/25 04/23/25 04/23/25 05:35 05:45 07:30 WBC Cancelled 7.07 RBC Cancelled 4.13 L Hgb Cancelled 11.1 L Hct Cancelled 33.3 L MCV Cancelled 81 MCH Cancelled 26.9 L MCHC Cancelled 33.3 RDW Cancelled 13.7 Plt Count Cancelled 132 MPV Cancelled 10.3 Immature Gran % Cancelled 0.6 Neutrophils % Cancelled 76.4 Band Neutrophils % Cancelled Lymphocytes % Cancelled 12.9 Atypical Lymphs % Cancelled Monocytes % Cancelled 9.2 Eosinophils % Cancelled 0.6 Basophils % Cancelled 0.3 Metamyelocytes % Cancelled Myelocytes % Cancelled Promyelocytes % Cancelled Other Cells % Cancelled Nucleated RBC % Cancelled 0.0 Absolute Neutrophils Cancelled 5.41 Absolute Lymphocytes Cancelled 0.91 L Absolute Monocytes Cancelled 0.65 Absolute Eosinophils Cancelled 0.04 Absolute Basophils Cancelled 0.02 RBC Morphology Cancelled Polychromasia Cancelled Hypochromasia Cancelled Poikilocytosis Cancelled Basophilic Stippling Cancelled Anisocytosis Cancelled Microcytosis Cancelled Macrocytosis Cancelled Spherocytes Cancelled Tear Drop Cells Cancelled Ovalocytes Cancelled Stomatocytes Cancelled [place] Bodies Cancelled Vidal Cells/Echinocytes Cancelled Acanthocytes (Spur) Cancelled Schistocytes Cancelled Sodium Cancelled Cancelled 139 Potassium Cancelled Cancelled 2.8 L* Chloride Cancelled Cancelled 101 Carbon Dioxide Cancelled Cancelled 30.0 Anion Gap Cancelled Cancelled 8.0 BUN Cancelled Cancelled 5 L Creatinine Cancelled Cancelled 0.9 Est GFR (CKD-EPI 2020) Cancelled Cancelled 117.83 Glucose Cancelled Cancelled 131 H Calcium Cancelled Cancelled 8.5 Total Bilirubin Cancelled 0.5 AST Cancelled 18 ALT Cancelled 22 Alkaline Phosphatase Cancelled 67 Total Protein Cancelled 6.2 L Albumin Cancelled 2.4 L Triglycerides Cancelled 324 H Time Spent with Patient Time Spent with Patient: 25-34 minutes Time was spent: preparing to see the patient(eg.review tests), obtaining and/or reviewing separately otained hiistory, ordering medications,tests, procedures, referring, communicating with other health customer care representative, indepentently interpreting results, counseling the patient and care coordination
[2025-04-23] MEDS: Insulin Aspart 300 UNITS/3 ML PEN SC ×2 (12:34→16:39)
--- NOTE | 2025-04-23 13:44 | CMPROGNOTE_ITS ---
Date of service: 04/23/25 Time of Service: 13:45 Care Management Progress Note Progress Note Text Progress Note Text: Michael was lying in bed when CM met with him today. He is downgraded to med-surg status. He is no longer on an insulin gtt, nor on IVF. Michael stated that he is feeling a bit better, but still doesn't have much of an appetite. He stated that he is going to have to make a lot of changes in his life style. CM stated confidence that he will be able to achieve this, he is young and has a lot to be healthy for. CM reminded Michael that he will have some excellent supports in the community. Michael and his family were seen by the bookkeeping machine operator today. Discharge Potential Discharge Needs: PCP F/U Appt (PCP will also be providing the support of DM educator and pharmacist) Anticipated Barriers to Discharge: None Identified Patient/Family Education Needs: Review discharge instructions, discuss Ask Me Three and Other (insulin administration) Transportation: Private vehicle Plan: Anticipate that Michael will be discharged home with no new services. He will f/u with his PCP, DM educator and pharmacist, and continue per his plan of care. Michael will transport home in a private vehicle. CM will continue to follow. Social Determinants of Health Screening Social Determinants of health last assessed in clinic: 04/21/25 Will the Patient Participate in the Screening?: Unable to obtain Do you worry about having a steady place to live?: no Problems where you live: no known problems In the past 12 months, have you had to go without electric, gas, oil or water in your home?: no Has lack of transportation kept you from medical appointments or from doing things needed for daily living?: no Has anyone in your life made you feel unsafe or unsupported?: no How hard is it for you to pay for the very basics like food, housing, medical care, and heating? Would you say it is:: Not hard at all Do you want help finding or keeping work or a job?: I do not need or want help If for any reason you need help with day-to-day activities such as bathing, preparing meals, shopping, managing finances, etc., do you get the help you need?: I don?t need any help How often do you feel lonely or isolated from those around you?: Never Do you speak a language other than Tristanian at home?: No Does the patient want assistance with any of the above?: No Health Related Social Needs Health related social needs details: none
[2025-04-23] MEDS: Pantoprazole 40 MG VIAL IVP (14:00)
[2025-04-23] MEDS: Insulin Glargine 300 UNITS/3 ML PEN 20 UNITS SC (19:46)
--- NOTE | 2025-04-23 22:08 | W.PC.ACHO ---
Registration Status: ADM CAN Primary Language: Preferred Language: Armenian ED Information & Data Chief Complaint Abd Prob 04/20/25 10:53 Triage Note Two days of abdominal pain. 04/20/25 09:43 Started in the center then traveled to right lower abdomen. No BM in two days. 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) Pilonidal cyst without abscess Adopted Depression Insomnia (Last Reviewed 04/20/25 @ 18:14 by Donny Guadalupe) [place] teeth extraction Excision, Pilonidal Cyst Most Recent Vital Signs Temperature 37.2 C 04/23/25 14:19 Temperature Source Temporal Artery Scan 04/23/25 14:19 Pulse 97 H 04/23/25 14:22 Pulse Rhythm Regular 04/20/25 13:30 Pulse 99 H 04/23/25 06:01 Respiratory Rate 16 04/23/25 14:23 Respiratory Effort Normal, Non-Labored 04/21/25 03:32 Respiratory Depth Normal 04/21/25 03:32 Respiratory Pattern Normal 04/21/25 03:32 Blood Pressure 117/79 04/23/25 14:23 Blood Pressure Mean 91 04/23/25 14:23 Blood Pressure Position Supine 04/21/25 03:32 Pulse Oximetry 98 04/23/25 14:23 Oxygen Delivery Method Room Air 04/23/25 14:23 Oxygen Flow Rate 0 04/23/25 14:23 Pain Level 0 04/23/25 20:45 Comment prior shift or nurse 04/23/25 06:01 Allergies cefprozil (From Cefzil) Allergy (Verified 10/06/24 08:41) body rash Precautions Isolation Standard precaution 04/20/25 09:47 Active Medications Generic Name Dose Route Start Last Admin Trade Name Freq PRN Reason Stop Dose Admin Enoxaparin Sodium 40 mg 04/21/25 22:00 04/22/25 22:23 Enoxaparin 40 Mg/0.4 Ml Syr SC 40 mg Q24H CHRISTINA Administration Acetaminophen 1,000 mg in 100 mls @ 400 mls/hr 04/23/25 08:00 04/23/25 16:29 Ofirmev IVPB 400 mls/hr Q8H CHRISTINA Administration Insulin Aspart 0 units 04/23/25 12:00 04/23/25 16:39 Insulin Aspart 300 Units/3 Ml Pen SC 4 units 0800,1200,1700 CHRISTINA Administration Protocol Insulin Glargine 20 units 04/20/25 20:00 04/23/25 19:46 Insulin Glargine 300 Units/3 Ml Pen SC 20 units HS CHRISTINA Administration Pantoprazole Sodium 40 mg 04/20/25 14:00 04/23/25 14:00 Pantoprazole 40 Mg Vial IVP 40 mg Q24H CHRISTINA Administration Phosphorus 250 mg 04/21/25 08:30 04/23/25 19:49 Phosphorus Neutral 250 Mg Tablet PO 250 mg QID CHRISTINA Administration Polyethylene Glycol 17 gm 04/23/25 08:30 04/23/25 09:05 Polyethylene Glycol 3350 17 Gm Packet PO 17 gm DAILY CHRISTINA Administration Potassium Chloride 40 meq 04/23/25 08:30 04/23/25 19:51 Potassium Chloride 20 Meq Tabcr PO 40 meq TID CHRISTINA Administration Sodium Chloride 0 ml 04/20/25 13:29 04/20/25 14:24 Normal Saline Flush 10 Ml Syr IVP 40 ml PRN PRN Administration Sodium Chloride 0 ml 04/20/25 20:00 04/23/25 19:51 Normal Saline Flush 10 Ml Syr IVP 10 ml BID CHRISTINA Administration IV IV Catheter Type [Right Saline Lock Forearm] IV Catheter Type [Left Forearm Saline Lock ] IV Catheter Gauge [Left 18 Forearm] Diagnostics 04/23/25 04/23/25 04/23/25 Range/Units 07:30 05:45 05:35 WBC 7.07 Cancelled RBC 4.13 L Cancelled Hgb 11.1 L Cancelled Hct 33.3 L Cancelled MCV 81 Cancelled MCH 26.9 L Cancelled MCHC 33.3 Cancelled RDW 13.7 Cancelled Plt Count 132 Cancelled MPV 10.3 Cancelled Immature Gran % 0.6 Cancelled Neutrophils % 76.4 Cancelled Band Neutrophils % Cancelled Lymphocytes % 12.9 Cancelled Atypical Lymphs % Cancelled Monocytes % 9.2 Cancelled Eosinophils % 0.6 Cancelled Basophils % 0.3 Cancelled Metamyelocytes % Cancelled Myelocytes % Cancelled Promyelocytes % Cancelled Other Cells % Cancelled Nucleated RBC % 0.0 Cancelled Absolute Neutrophils 5.41 Cancelled Absolute Lymphocytes 0.91 L Cancelled Absolute Monocytes 0.65 Cancelled Absolute Eosinophils 0.04 Cancelled Absolute Basophils 0.02 Cancelled RBC Morphology Cancelled Polychromasia Cancelled Hypochromasia Cancelled Poikilocytosis Cancelled Basophilic Stippling Cancelled Anisocytosis Cancelled Microcytosis Cancelled Macrocytosis Cancelled Spherocytes Cancelled Tear Drop Cells Cancelled Ovalocytes Cancelled Stomatocytes Cancelled [place] Bodies Cancelled Vidal Cells/Echinocytes Cancelled Acanthocytes (Spur) Cancelled Schistocytes Cancelled Sodium 139 Cancelled Cancelled Potassium 2.8 L* Cancelled Cancelled Chloride 101 Cancelled Cancelled Carbon Dioxide 30.0 Cancelled Cancelled Anion Gap 8.0 Cancelled Cancelled BUN 5 L Cancelled Cancelled Creatinine 0.9 Cancelled Cancelled Est GFR (CKD-EPI 2020) 117.83 Cancelled Cancelled Glucose 131 H Cancelled Cancelled Calcium 8.5 Cancelled Cancelled Total Bilirubin 0.5 Cancelled AST 18 Cancelled ALT 22 Cancelled Alkaline Phosphatase 67 Cancelled Total Protein 6.2 L Cancelled Albumin 2.4 L Cancelled Triglycerides 324 H Cancelled 04/20/25 11:45 Blood Culture - Preliminary Blood NO GROWTH 72 HOURS 04/20/25 11:10 Blood Culture - Preliminary Blood NO GROWTH 72 HOURS [id number] Documentation Fingerstick Glucose Start: 04/20/25 15:35 Freq: .Q6H Status: Complete Protocol: Activity Type Activity Date Activity User E-sign Co-sign Detail Recorded Client Recorded Date Recorded By Document 04/20/25 23:52 BKG DAEMON(7) NVT-BG05 04/20/25 23:53 BKG DAEMON(8) Fingerstick Glucose Start: 04/21/25 00:01 Freq: .Q1H Status: Complete Protocol: Activity Type Activity Date Activity User E-sign Co-sign Detail Recorded Client Recorded Date Recorded By Document 04/23/25 11:56 BKG DAEMON(9) NVT-BG05 04/23/25 11:56 BKG DAEMON(10) Fingerstick Glucose Start: 04/23/25 12:07 Freq: .AC Status: Active Protocol: Activity Type Activity Date Activity User E-sign Co-sign Detail Recorded Client Recorded Date Recorded By Document 04/23/25 19:46 BKG DAEMON(10) NVT-BG05 04/23/25 19:56 TIANA MENDOZA(10) Intake and Output - 24 Hour Total 04/20/25 09:36 thru 04/23/25 17:58 Intake Total 65615.983 Output Total 5800 Balance 9450.983 Weight 110.1 [place]: [place] [address].983 Oral 1784 Output: Urine 5800 Other: Urine Color Straw Urine Appearance Clear Urine Odor Normal Comment [facility]. Stool Size Moderate Stool Characteristics Formed Falls Risk Assessment History of Falls No History 04/21/25 03:32 Contributing Factors No Factors 04/20/25 13:30 Ambulatory Aids Independent 04/21/25 03:32 Tubes/Lines With any additional score 04/21/25 03:32 Gait Evaluation No gait disturbance 04/21/25 03:32 Cognition No cognitive impairment 04/21/25 03:32 Fall Total Score 20 04/21/25 03:32 Level of Risk Standard/Low Risk 04/21/25 03:32 Problems (Last Reviewed 04/20/25 @ 18:14 by Donny Guadalupe) Hypokalemia (Acute) Appendix disease (Acute) Newly diagnosed diabetes (Acute) Acute pancreatitis (Acute) Hypophosphatemia (Acute) Hypertriglyceridemia without hypercholesterolemia (Acute) DVT prophylaxis (Acute) Lactic acidosis (Acute) Hyponatremia (Acute) Hyperglycemia (Acute) Abdominal pain (Acute) Pancreatitis (Chronic) v v v v v v v v v Sending and/or Receiving Nurses: Please use comment section below to note any information pertinent to the patient hand-off not included above. Information / Comments: Pt came in with pancreatitis, hypertriglyceridemia, and duodenal ulcer. Pt found to be a new diabetic. Was on insulin gtt d/t triglycerides, now d/c'd. Pt did first administration of insulin today with success. A&Ox4, CTA, HRR, +BS. Report received from: Christel Silva RN
[2025-04-23] MEDS: Enoxaparin 40 MG/0.4 ML SYR SC (22:52)
[2025-04-24] MEDS: Acetaminophen 500 MG TAB 1000 MG PO ×2 (00:02→07:57)
[2025-04-24 00:06] VITALS: BP 119/82; PULSE 100; RESP 22; TEMP 37.7; O2SAT 95
[2025-04-24 06:57] LABS: Abs Immature Grans 0.06 10^3/uL (0.0-0.06); HCT 35.6 % (40.0-50.0); HGB 11.4 g/dL (13.5-17.5); Immature Grans % 0.8 %; MCH 26.1 pg (27.0-33.0); MCHC 32.0 % (32.0-36.0); MCV 82 fL (80-95); MPV 10.2 fL (8.0-11.0); Platelet Count 134 10^3/uL (130-400); RBC 4.36 10^6/uL (4.36-5.78); RDW 13.6 % (11.8-14.1); RDW-SD 40.5 fL; WBC 7.45 10^3/uL (4.4-10.8)
[2025-04-24 07:22] LABS: ALT 21 U/L (16-63); AST 11 U/L (15-37); Albumin 2.3 g/dL (3.4-5.0); Alkaline Phosphatase 67 U/L (46-116); Anion Gap 5.3 mmol/L (3-11); BUN 7 mg/dL (7-18); Bilirubin, Total 0.6 mg/dL (0.2-1.0); CO2 31.7 mmol/L (21.0-32.0); Calcium 8.6 mg/dL (8.5-10.1); Chloride 100 mmol/L (98-107); Estimated GFR 122.10 (mL/min/1.73m2); Glucose 226 mg/dL (74-106); Potassium 3.7 mmol/L (3.5-5.1); Sodium 137 mmol/L (136-145); Total Protein 6.0 g/dL (6.4-8.2)
[2025-04-24 07:35] LABS: Triglyceride 371 mg/dL (<150)
[2025-04-24 07:54] VITALS: BP 113/77; PULSE 59; RESP 14; TEMP 37.1; O2SAT 96
[2025-04-24] MEDS: Potassium Chloride 20 MEQ TABCR 40 MEQ PO ×2 (07:57→13:12)
[2025-04-24] MEDS: Normal Saline Flush 10 ML SYR IVP (07:57)
[2025-04-24] MEDS: Insulin Aspart 300 UNITS/3 ML PEN SC ×2 (08:07→13:03)
--- NOTE | 2025-04-24 13:09 | W.PM.PROGNOT ---
Date of Service Date of service: 04/24/25 Time of Service: 10:00 Assessment and Plan Assessment and plan (1) Abdominal pain: Status: Resolved Assessment and plan: resolving w management of acute pancreatitis. Suspect secondary appendix inflammation due to the pancreatitis edema and inflammation. No appendicitis. Feels better. No indication for surgery. Safe for discharge home. Follow up with us in 2-3 weeks for check in on abnd pain. No indication at this time for internal appendectomy, will just ensure he has resolved his symptoms. (2) Diabetes: Status: Chronic Assessment and plan: New diagnosis diabetes type 2. Hospitalist to help arrange transitional meds while pt looks to getting in with a PCP. Subjective Subjective Interval history since last seen: RLQ pain nearly resolved. normal appetite, no nausea. feels well. Exam Narrative Exam Narrative: awake, NAD eomi, MMM normal resp effort abd nondistended Objective Last Vital Signs Temp 98.8 F 04/24/25 07:54 Pulse 59 L 04/24/25 07:54 Resp 14 04/24/25 07:54 BP 113/77 04/24/25 07:54 Pulse Ox 96 04/24/25 07:54 Laboratory Results - last 24 hr 04/21/25 04/24/25 00:30 06:17 WBC 7.45 RBC 4.36 Hgb 11.4 L Hct 35.6 L MCV 82 MCH 26.1 L MCHC 32.0 RDW 13.6 Plt Count 134 MPV 10.2 Immature Gran % 0.8 Neutrophils % 70.5 Lymphocytes % 17.6 Monocytes % 10.1 Eosinophils % 0.7 Basophils % 0.3 Nucleated RBC % 0.0 Absolute Neutrophils 5.26 Absolute Lymphocytes 1.31 Absolute Monocytes 0.75 Absolute Eosinophils 0.05 Absolute Basophils 0.02 Sodium 137 Potassium 3.7 Chloride 100 Carbon Dioxide 31.7 Anion Gap 5.3 BUN 7 Creatinine 0.8 Est GFR (CKD-EPI 2020) 122.10 Glucose 226 H C-Peptide ng/ml 2.5 Calcium 8.6 Phosphorus 3.3 Total Bilirubin 0.6 AST 11 L ALT 21 Alkaline Phosphatase 67 Total Protein 6.0 L Albumin 2.3 L Triglycerides 371 H Time Spent with Patient Time Spent with Patient: <25 minutes Time was spent: preparing to see the patient(eg.review tests), referring, communicating with other health intensive care anaesthetist and counseling the patient
--- NOTE | 2025-04-24 14:18 | DSE_ITS ---
Date of service: 04/24/25 Time of Service: 14:18 DS: Diagnosis Discharge Diagnosis (1) Appendix disease: Status: Acute (2) Acute pancreatitis: Status: Acute (3) Hypertriglyceridemia without hypercholesterolemia: Status: Acute (4) Newly diagnosed diabetes: Status: Acute (5) Hypokalemia: Status: Acute Discharge Plan Disposition Patient Disposition: Home Condition: Improving Discharge Details Reason For Visit: Peptic Ulcer Disease Admit Date/Time: 04/20/25 12:11 Admit Provider: Jose Garcia Attending Provider: Jose Garcia Primary Care Provider: Ruchi Guerrero Hospital Course Hospital Course: This is a 29-year-old gentleman who was admitted to the hospital on 04/20/25 for abdominal pain. Patient was originally admitted to the surgical services there was concern about appendicitis versus pancreatitis. The hospital team was consulted on the for medical management of hypertriglyceridemia as well as new onset diabetes. We did take over the case as the patient was not a surgical. While he was in the hospital he was diagnosed with diabetes with a A1c of approximately 10.9. Patient also was noted to have significant hypertrig lyceridemia which was treated with an insulin drip. The patient was sent originally to the ICU on the April and was sent to the floor. Patient tolerated his diet but on the second recommended discharge to which she agreed. The plan of care was discussed with general surgery who was in agreement that he can be discharged. While he was in the hospital multiple diagnostic test was performed. The patient did have a CT scan done on admission of his abdomen and pelvis which showed abundant fluid in the right side of the abdomen, actually , just paste the results below. In terms of his laboratory data his he did have mild anemia which will need to be worked up in the outpatient setting. Patient also had mild thrombocytopenia on admission which resolved. Had hypokalemia which resolved. Patient had hypophosphatemia that was treated. Patient had a significant A1c as mentioned above. Triglycerides were noted as high as 1227 on the at the time of discharge stable at 371. In reviewing up to date the recommendation was for 6 to 12 weeks of diet and exercise before statin therapy or fibrate's were started. I did discuss this with the patient as well as family who are in agreement that they will not start medications at this time for hypertriglyceridemia. I did recommend genetic evaluation as this could be familial. Because of the patient's new onset of diabetes I have started him on an CONY inhibitor as well as aspirin. The patient did have protein in his urine. He wants to go home with Lantus as well as a sliding scale insulin. It is imperative that he follow-up with his PCP for optimization of his medical regimen. Patient was also given prescriptions for glucometer, lancets and testing strips. IMPRESSION: 1. There is abundant fluid in the right-side of the abdomen extending from around the distal half of the a duodenum and adjacent uncinate process of the pancreas and extending in continuous fashion for this region down subjacent to the inferior aspect of the right hepatic lobe and down the right pericolic gutter all the way into the most dependent aspect of the pelvis. The appendix is bathed in this fluid and is slightly prominent in diameter but this amount of free fluid is not typical of acute appendicitis. 2. Appearance of the duodenum reflects possible duodenitis. Cannot exclude the possibly that the epicenter of disease here is in the distal half of the duodenal C-loop including of the ligament of Treitz. There is some fluid subjacent to the uncinate process of the pancreas but the pancreas itself exhibits normal density. Nevertheless would recommend blood work for pancreatitis. 3. There is hepatomegaly and hepatic steatosis and splenomegaly. There are no esophageal varices. 4. Surgical consultation recommended. .. Recommendations for Follow Up Recommended tests to be ordered by follow up provider: cbc/cmp in 2-4 weeks triglycerides in 12 weeks c-peptide pending but drawn GAD65 pending but drawn Home Meds and New Rx's Prescriptions: New insulin aspart U-100 100 unit/mL (3 mL) Insulin Pen See Rx Instructions .ROUTE .COMPLEX Qty: 15 1RF Rx Instructions: QAC AND HS insulin glargine [Lantus Solostar U-100 Insulin] 100 unit/mL (3 mL) Insulin Pen 20 unit subcut HS Qty: 15 0RF lisinopril 10 mg tablet 10 mg PO DAILY Qty: 30 0RF aspirin 81 mg tablet,delayed release (DR/EC) 81 mg PO DAILY Qty: 30 0RF (DME) blood-glucose meter Kit See Rx Instructions .Route Qty: 1 0RF Rx Instructions: As directed (DME) lancets [Lancets, Super Thin] Misc See Rx Instructions .Route Qty: 200 0RF Rx Instructions: As directed (DME) Test N'Go Test Strip See Rx Instructions .Route Qty: 100 0RF Rx Instructions: As directed Discharge Instructions Referrals: Jose Garcia MD [ [facility] STAFF PHYSICIAN, Surgery] Referral Note: See Dr Garcia or Dr Dillon in 4-6 weeks to discuss EGD and make sure your abdominal pain has not recurred. Activity:: Activity as Tolerated Equipment/Supplies:: Blood Glucose Monitor Diet:: diabetic Discharge Orders Discharge Orders: Discharge Order (Routine); Ordered 04/24/25 Ordered By: José Manuel Ordaz DS: Summary Time Spent with Patient providing and/or coordinating discharge services: Greater than 30 minutes Status at Discharge Functional status at discharge: independent ambulation Overall status at discharge: patient is back to baseline Mental Status: mental status grossly normal Speech and Movement: speech and movement normal Mood: congruent mood Affect: normal affect Quality:SDOH Health Related Social Needs: Health related social needs details none Health related social needs details: none Exam Narrative Exam Narrative: GEN: Alert and oriented x 4, pleasant and cooperative, gives linear history. No acute distress at rest. LUNGS: CTAB with normal effort CV: RRR with no murmurs, gallops, or rubs. ABD: active bowel sounds, soft, tender in RUQ to RLQ, nondistended. no rebound, no masses. EXT: no cyanosis, clubbing, or edema Psych Mental Status: mental status grossly normal Speech and Movement: speech and movement normal Mood: congruent mood Affect: normal affect DS: Data Vitals/I&O Vitals and I&O: Vital Signs Temperature 37.1 C 04/24/25 07:54 Temperature Source Temporal Artery Scan 04/24/25 07:54 Pulse 59 L 04/24/25 07:54 Pulse Rhythm Regular 04/20/25 13:30 Pulse 99 H 04/23/25 06:01 Respiratory Rate 14 04/24/25 07:54 Respiratory Effort Normal, Non-Labored 04/21/25 03:32 Respiratory Depth Normal 04/21/25 03:32 Respiratory Pattern Normal 04/21/25 03:32 Blood Pressure 113/77 04/24/25 07:54 Blood Pressure Mean 89 04/24/25 07:54 Blood Pressure Position Supine 04/21/25 03:32 Pulse Oximetry 96 04/24/25 07:54 Oxygen Delivery Method Room Air 04/24/25 07:54 Oxygen Flow Rate 0 04/24/25 07:54 Pain Level 2 04/24/25 07:57 Comment prior shift or nurse 04/23/25 06:01 Intake & Output 04/23/25 04/24/25 04/24/25 23:59 11:59 23:59 Intake Total 462 / 3401.9 1000 / 1000 Balance 462 / 1801.9 1000 / 1000 Intake: IV 1000 / 1000 Oral 462 / 802 Other: Urine Color Yellow Urine Odor Normal Comment reported void in ms bathroom Stool Size Moderate Stool Characteristics Formed Data Completed and Pending Labs on day of discharge: Labs from last 24 hours 04/24/25 04/21/25 06:17 00:30 WBC 7.45 RBC 4.36 Hgb 11.4 L Hct 35.6 L MCV 82 MCH 26.1 L MCHC 32.0 RDW 13.6 Plt Count 134 MPV 10.2 Immature Gran % 0.8 Neutrophils % 70.5 Lymphocytes % 17.6 Monocytes % 10.1 Eosinophils % 0.7 Basophils % 0.3 Nucleated RBC % 0.0 Absolute Neutrophils 5.26 Absolute Lymphocytes 1.31 Absolute Monocytes 0.75 Absolute Eosinophils 0.05 Absolute Basophils 0.02 Sodium 137 Potassium 3.7 Chloride 100 Carbon Dioxide 31.7 Anion Gap 5.3 BUN 7 Creatinine 0.8 Est GFR (CKD-EPI 2020) 122.10 Glucose 226 H C-Peptide ng/ml 2.5 Calcium 8.6 Phosphorus 3.3 Total Bilirubin 0.6 AST 11 L ALT 21 Alkaline Phosphatase 67 Total Protein 6.0 L Albumin 2.3 L Triglycerides 371 H Preliminary micro results at discharge 04/20/25 11:45 Blood Blood Culture - Preliminary NO GROWTH 96 HOURS 04/20/25 11:10 Blood Blood Culture - Preliminary NO GROWTH 96 HOURS [facility] All Active Problems (Updated 04/24/25 @ 14:18 by José Manuel Ordaz MD) Diabetes (Chronic) Hypokalemia (Acute) Appendix disease (Acute) Newly diagnosed diabetes (Acute) Acute pancreatitis (Acute) Hypophosphatemia (Acute) Hypertriglyceridemia without hypercholesterolemia (Acute) DVT prophylaxis (Acute) Lactic acidosis (Acute) Hyponatremia (Acute) Hyperglycemia (Acute) Abdominal pain (Acute) Pancreatitis (Chronic) Numbness and tingling of left lower extremity (Acute) Bulge of lumbar disc without myelopathy (Acute ~06/2024) 07/06/24 [facility] visit, no immediate intervention Left lumbar radiculopathy (Acute) 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) Pilonidal cyst without abscess Adopted Depression Insomnia Surgical History [place] teeth extraction Excision, Pilonidal Cyst Family History (Updated 04/20/25 @ 18:15 by Donny Guadalupe) Brother Diabetes per father, biologic siblings Other Adopted Social History Smoking/Tobacco Use Status: Never Smoking risk assessment performed?: Yes Alcohol Intake: former Drug use: Never Substance use type: does not use Housing: house current occupation: Former [employer] worker, currently on work injury Do you feel safe at home: Yes Do you feel safe in your relationship?: Yes Time Spent with Patient Time Spent with Patient: 70-84 minutes4 Time was spent: preparing to see the patient(eg.review tests), obtaining and/or reviewing separately otained hiistory, ordering medications,tests, procedures, referring, communicating with other health care center manager, indepentently interpreting results, counseling the patient and care coordination
--- NOTE | 2025-04-24 15:20 | PDOC.CMPRO ---
Date of service: 04/24/25 Time of Service: 15:20 Care Management Progress Note Progress Note Text Progress Note Text: CM met with Michael and his parents at their request as they had many questions about his discharge plan. Their first concern was his lack of insurance. CM had coordinated with [facility] to sign Michael up for Medicaid as an access to care urgent enrollment. Per DANYEL Pradhan, it was approved and should be able to be seen in the system by Saturday. Michael's Mom was concerned about the cost of his medications for discharge today. He will be given the 2 insulin pens he has been using in the hospital and that should carry him through Saturday or Saturday when his Medicaid will be active. The other medication that is being ordered is Lisinopril which is very inexpensive. In addition, he will need a glucometer, lancets and test strips. The order will be sent to his pharmacy. Dad did not express as much concern about cost as, he noted, it really is something that Michael must have to manage his diabetes; obtaining medications and supplies is not negotiable.Mom also had questions about diet. Both Sangita, his nurse and Dr. Ordaz stressed that he should avoid starchy foods and fatty foods. He will be getting additional diabetes education after discharge which is being coordinated through his PCP office. He will meet with a telehealth nurse educator as well as pharmacist and scrape gatherer. Mom expressed concern about Michael's blood sugar getting out of control again and asked at what point should he return to the ED. Dr. Ordaz informed her that 500 would be the cut off. he explained that it is likely that his sugars have been in the 300s range for quite some time, given his A1C of 10.9 on admission. CM will contact his PCP office on Saturday morning to make Michael's follow up appointment and will also call [facility] to verify that [place] Medicaid is, in fact, active. Social Determinants of Health Screening Social Determinants of health last assessed in clinic: 04/21/25 Will the Patient Participate in the Screening?: Unable to obtain Do you worry about having a steady place to live?: no Problems where you live: no known problems In the past 12 months, have you had to go without electric, gas, oil or water in your home?: no Has lack of transportation kept you from medical appointments or from doing things needed for daily living?: no Has anyone in your life made you feel unsafe or unsupported?: no How hard is it for you to pay for the very basics like food, housing, medical care, and heating? Would you say it is:: Not hard at all Do you want help finding or keeping work or a job?: I do not need or want help If for any reason you need help with day-to-day activities such as bathing, preparing meals, shopping, managing finances, etc., do you get the help you need?: I don?t need any help How often do you feel lonely or isolated from those around you?: Never Do you speak a language other than Hungarian at home?: No Does the patient want assistance with any of the above?: No Health Related Social Needs Health related social needs details: none
--- NOTE | 2025-04-24 15:39 | CMDISCH_ITS ---
Date of service: 04/24/25 Time of Service: 15:40 LACE Index Scoring Tool Questions: Length of Stay (in days): 4 - 6 Was the patient admitted via the E.D.?: Yes Comorbidities: Diabetes w/o Complication E.D. Visits: 1 Answers: Total Score: 9 Risk of Readmission: Low Risk Care Management Discharge Plan Reason for Hospitalization: abdominal pain and new onset diabetes Discharge Plan: Michael will be discharged home with no new services. He will f/u with his PCP, DM educator, magnaflux operator and pharmacist, and continue per his plan of care. Michael will transport home in a private vehicle with his mother. Patient/Family Education Needs: Review discharge instructions, limitations, medications and glucose testing, follow up plan and discuss Ask Me Three SDOH Health Related Social Needs: Health related social needs details none Health related social needs details: none
== END 2025-04-24 16:22 | disposition home or self-care (01) ==
LOC: ER 11:27 → MS 13:27 → ICU 04-21 00:47 → MS 04-23 20:45
PROVIDERS: Family Medicine; Surgery; Admitting Provider Surgery; Emergency Provider Physician Assistant; PCP Nurse Practitioner; Responsible Provider Hospitalist; Visit Provider Surgery
DX: K85.90 Acute pancreatitis without necrosis or infection, unspecified (principal); K52.89 Other specified noninfective gastroenteritis and colitis; E11.65 Type 2 diabetes mellitus with hyperglycemia; E87.1 Hypo-osmolality and hyponatremia; E87.20 Acidosis, unspecified; E78.1 Pure hyperglyceridemia; E83.39 Other disorders of phosphorus metabolism; E87.6 Hypokalemia; D72.829 Elevated white blood cell count, unspecified; G47.00 Insomnia, unspecified; R10.9 Unspecified abdominal pain; F32.A Depression, unspecified; K76.0 Fatty (change of) liver, not elsewhere classified; R16.1 Splenomegaly, not elsewhere classified; R18.8 Other ascites; R20.2 Paresthesia of skin; K38.8 Other specified diseases of appendix; D69.6 Thrombocytopenia, unspecified; D64.9 Anemia, unspecified
CPT/HCPCS: 00123; 36415; 80048; 80053; 80076; 83690; 83721; 85027; 86341; 87040; 96361; 96365; 96366; 96367; 96372; 96375; 96376; 99285; J1650; 74022; 74177; 81003; 81015; 82248; 83036; 83605; 83735; 84100; 84478; 84681; 85025; 86140; 99222; 99232; 99239; G0378; J0131; J0744; J1171; J1815; J1836; J1885; J2470; J3490